=== PATIENT | male | born 1955 | race Caucasian/White ===

== ENCOUNTER → 2016-08-28 | Outpatient (CLI) | payer OTHER ==
[2016-04-27 19:28] VITALS: BP 140/81
--- NOTE | 2016-08-28 11:17 | RAD ---
HISTORY: COPD, wheezing, dyspnea Study: Two view chest Comparison: Prior chest CT report from 05/30/2015 Findings: There is dense consolidation in the right upper lobe. The lungs are clear without consolidation, eff usion or pneumothorax. The cardiac and mediastinal contours are within normal limits. The soft tiss ues are unremarkable. IMPRESSION: 1. Dense right upper lobe consolidation that may represent pneumonia. Reported By:
== END | disposition home or self-care (01) ==
LOC: RAD 09:45
PROVIDERS: ATTEND Nurse Practitioner Family
DX: J44.9 Chronic obstructive pulmonary disease, unspecified (principal); R06.09 Other forms of dyspnea; R06.2 Wheezing
CPT/HCPCS: 71020

== ENCOUNTER 2019-10-20 09:57 | Observation (INO) ==
[2019-10-20 10:29] LABS: BASOPHILS # (AUTO) 0.1 X10^3/uL (0.0-0.1); BASOPHILS % (AUTO) 1.2 % (0.2-1.0); EOSINOPHILS # (AUTO) 0.3 x10^3/uL (0.0-0.2); EOSINOPHILS % (AUTO) 2.7 % (0.9-2.9); HEMATOCRIT 35.4 % (42.0-54.0); HEMOGLOBIN 11.6 g/dL (13.5-18.0); LYMPHOCYTES # (AUTO) 1.2 X10^3/uL (1.3-2.9); LYMPHOCYTES % (AUTO) 11.5 % (21.0-51.0); MEAN CORPUSCULAR HEMOGLOBIN 23.9 pg (27.0-34.0); MEAN CORPUSCULAR HGB CONC 32.7 g/dL (33.0-35.0); MEAN PLATELET VOLUME 7.3 fL (7.4-11.0); MONOCYTES # (AUTO) 1.1 x10^3/uL (0.3-0.8); MONOCYTES % (AUTO) 10.3 % (0.0-13.0); NEUTROPHILS # (AUTO) 7.9 x10^3/uL (2.2-4.8); NEUTROPHILS % (AUTO) 74.3 % (42.0-75.0); PLATELET COUNT 599 X10^3/uL (150.0-450.0); RED BLOOD COUNT 4.85 X10^6/uL (4.7-6.0); RED CELL DISTRIBUTION WIDTH 16.9 % (11.6-16.5); WHITE BLOOD COUNT 10.6 X10^3/uL (3.6-10.0)
[2019-10-20 10:42] LABS: BLOOD UREA NITROGEN 7 mg/dL (7-18); CALCIUM 8.6 mg/dL (8.5-10.1); CARBON DIOXIDE 25.2 mmol/L (21-32); CHLORIDE 100 mmol/L (98-107); COR NA(FOR HYPERGLY) 135 mmol/L (136-145); CREATININE 1.04 mg/dL (0.70-1.30); SODIUM 134 mmol/L (136-145); TROPONIN I < 0.02 ng/mL (0-1.5); eGFR NON BLACK RACES > 60 (>60)
[2019-10-20 10:44] LABS: HYPOCHROMASIA 1+; PLATELET MORPHOLOGY COMMENT NORMAL (NORMAL)
[2019-10-20 10:47] LABS: ALANINE AMINOTRANSFERASE 32 Units/L (12-78); ALBUMIN 2.3 g/dL (3.4-5.0); ALKALINE PHOSPHATASE 143 Units/L (46-116); ASPARTATE AMINO TRANSFERASE 34 Units/L (15-37); CKMB % 8.3 % (<4); CREATINE KINASE 12 Units/L (39-308); CREATINE KINASE MB < 1.0 ng/mL (0-4.0); TOTAL PROTEIN 7.6 g/dL (6.4-8.2)
[2019-10-20] MEDS ORDERED: NS 1000 ML 1,000 ML IV ONE ×2 (10:50→13:03)
[2019-10-20] MEDS ORDERED: NS 1000 ML 1,000 ML ONE ×2 (10:51→13:04)
--- NOTE | 2019-10-20 11:21 | RAD ---
HISTORYChronic cough, weaknessSTUDYCHEST, 1 VIEWCOMPARISONCT chest 05/21/2018FINDINGSThe heart is within normal limits in size. No congestive heart failure is noted. The lungs are mildly hyperinflated. The lower lung ahn are clear. Cavitary infiltrate with associated pleural thickening is present in the right upper lobe slightly more prominent than was noted on the CT chest examination of 05/21/2018. However due on this examination is extensive infiltrates in the left upper lobe likely with some cavitation in some adjacent pleural thickening. These findings may represent an infectious process such as TB or fungal disease, less likely routine bacterial pneumonia, however, underlying neoplasm certainly cannot be excluded. Active TB must be excluded. Bronchoscopy may be indicated.IMPRESSIONInterval development since the prior examination of dense left upper lobe infiltrate likely with some cavitation. Some differential diagnostic possibilities given above. Active TB must be excluded. Underlying neoplasm certainly cannot be excluded as yetIncreasing prominence of the previously described cavitary infiltrates in the right upper lobe. Active TB must be excluded.Electronically signed by: DEDRICK LIN (Oct 20, 2019 11:19:13)
--- NOTE | 2019-10-20 11:33 | DR.GENAD ---
HPI Time Seen Time Seen by Provider: 10/20/19 10:11 PCP Primary Care Physician: FERN HPI Comment HPI Comment: Patient with 2 weeks of increasing weakness. Fresh blood per stool yesterday and today 10 episodes total. No nausea, vomiting or abdominal pain, no dysuria, no SHOB or cough, no chest pain, no syncope. PMH of "MAC Pneumonia" treated with "Multiple abx", denies ever having had an HIV test or being at risk for HIV, denies any history of cancer or chemotherapy. 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 Complaint/Symptoms Chief Complaint:: PT. C/O BRIGHT RED BLOOD IN STOOL. PT. STATES IT BEGAN LAST NIGHT AND HAS WORSENED THIS MORNING. PT. HAS HAD ABOUT 10 LOOSE STOOLS, MOSTLY BLOOD. PT. ALSO C/O WEAKNESS, ABDOMINAL PAIN AND DIZZINESS. COVID-19 Coronavirus risk:travel/contact w/high risk person: No Has patient experienced Coronavirus symptoms: No Source History Provided: Patient Mode of Arrival Mode of Arrival: Ambulatory Timing Onset of Chief Complaint: 10/20/19 PMH PMH Past Medical History: Yes Past Medical History: COPD, Depression and GERD Past Surgical History: Yes Surgical History: Appendectomy and Ortho Surgery Family History History of Family Medical Conditions: Yes Family Medical History: Diabetes Mellitus, [place] and Hypertension Social History Does patient currently use any type of tobacco product: Yes Have you used tobacco products in the last 12 months: Yes Type of Tobacco Use: Cigars Does any household member use tobacco: No Alcohol Use: None Do you use any recreational Drugs:: No Lives With: Spouse Lives Where: Home Travel Risk Coronavirus risk:travel/contact w/high risk person: No Has patient experienced Coronavirus symptoms: No Infectious screening In the last 2 months have you had wt loss of >10#?: NO Have you had fever, night sweats or hemotysis?: No Have you traveled outside the country in the last 6 months?: No Isolation: Standard ROS Review of Systems Constitutional: Weakness Eyes: No Symptoms Reported ENTM: No Symptoms Reported Respiratoy: No Symptoms Reported Cardiovascular: No Symptoms Reported Gastrointestinal/Abdominal: See HPI Genitourinary: No Symptoms Reported Neurological: No Symptoms Reported Musculoskeletal: No Symptoms Reported Integumentary: No Symptoms Reported Hematologic/Lymphatic: No Symptoms Reported Endocrine: No Symptoms Reported Psychiatric: No Symptoms Reported All Other Systems: Reviewed and Negative PE Vital Signs Vitals: Temperature 97.6 F Pulse Rate 84 Respiratory Rate 22 Blood Pressure [Right Arm] 117/60 Blood Pressure 84/52 O2 Sat by Pulse Oximetry 96 General Limitations: No Limitations General Appearance: Alert and In No Apparent Distress Head Head Exam: Normal Inspection Eyes Eye exam: Normal Appearance and Other ([place] palpebral conjuctivae) ENT ENT Exam: Normal Exam External Ear Exam: Normal External Inspection TM/Canal Exam: Bilateral: Normal Nose Exam: Normal Nose Exam Mouth Exam: Normal Inspection Throat Exam: Normal Inspection Neck Neck Exam: Normal Inspection Chest Chest Inspection: Normal Inspection Respiratory Respiratory Exam: Normal Lung Sounds Bilat Respiratory Exam: Bilateral: Clear to Auscultation Cardiovascular Cardiovascular Exam: Regular Rate and Normal Rhythm Abdominal Exam Abdominal Exam: Normal Inspection, Soft and Tenderness (Some epigastric tenderness); negative Distention, Guarding, Rebound and Rigidity Abdominal Tenderness: Epigastrium and Mild Extremities Extremities Exam: Normal Inspection Back Back Exam: Normal Inspection Neurologic Neurological Exam: Alert and Oriented X3 Psychiatric Psychiatric Exam: Normal Affect and Normal Mood Skin Skin Exam: Warm, Dry, Intact and Normal Color COURSE Treatment Treatment: Chest x-ray consistent with pt stated medical hx. Concern that bleeding was precipitated by patient being on daily Plavix, ASA, and Celecoxib. Due to borderline normal MAPs, bolus 1L x 2 was given. Hgb of 10.6 is slightly lower than baseline at previous visits, however due to frequency of bloody stools and weakness symptom, as well as borderline SBP, admission is indicated for obs and urgent endoscopy. Discussed with Dr. Phoenix, who agrees and accepts this patient. ROR Labs Reviewed Laboratory Results Reviewed?: Yes Result Diagrams: 10/20/19 10:18 10/20/19 10:18 Laboratory: WBC 10.6 X10^3/uL (3.6-10.0) H 10/20/19 10:18 RBC 4.85 X10^6/uL (4.7-6.0) 10/20/19 10:18 Hgb 11.6 g/dL (13.5-18.0) L 10/20/19 10:18 Hct 35.4 % (42.0-54.0) L 10/20/19 10:18 MCV 73.0 fL (80.0-100.0) L 10/20/19 10:18 MCH 23.9 pg (27.0-34.0) L 10/20/19 10:18 MCHC 32.7 g/dL (33.0-35.0) L 10/20/19 10:18 RDW 16.9 % (11.6-16.5) H 10/20/19 10:18 Plt Count 599 X10^3/uL (150.0-450.0) H 10/20/19 10:18 Plt Count Comment Increased (ADEQUATE) 10/20/19 10:18 MPV 7.3 fL (7.4-11.0) L 10/20/19 10:18 Neut % (Auto) 74.3 % (42.0-75.0) 10/20/19 10:18 Lymph % (Auto) 11.5 % (21.0-51.0) L 10/20/19 10:18 [place] % (Auto) 10.3 % (0.0-13.0) 10/20/19 10:18 Eos % (Auto) 2.7 % (0.9-2.9) 10/20/19 10:18 Baso % (Auto) 1.2 % (0.2-1.0) H 10/20/19 10:18 Neut # (Auto) 7.9 x10^3/uL (2.2-4.8) H 10/20/19 10:18 Lymph # (Auto) 1.2 X10^3/uL (1.3-2.9) L 10/20/19 10:18 [place] # (Auto) 1.1 x10^3/uL (0.3-0.8) H 10/20/19 10:18 Eos # (Auto) 0.3 x10^3/uL (0.0-0.2) H 10/20/19 10:18 Baso # (Auto) 0.1 X10^3/uL (0.0-0.1) 10/20/19 10:18 Absolute Nucleated RBC 0.0 /100WBC 10/20/19 10:18 Plt Morphology Comment Normal (NORMAL) 10/20/19 10:18 RBC Morphology Abnormal (NORMAL) 10/20/19 10:18 Hypochromasia 1+ A 10/20/19 10:18 Sodium 134 mmol/L (136-145) L 10/20/19 10:18 Corrected Sodium 135 mmol/L (136-145) L 10/20/19 10:18 Potassium 3.8 mmol/L (3.5-5.1) 10/20/19 10:18 Chloride 100 mmol/L (98-107) 10/20/19 10:18 Carbon Dioxide 25.2 mmol/L (21-32) 10/20/19 10:18 BUN 7 mg/dL (7-18) 10/20/19 10:18 Creatinine 1.04 mg/dL (0.70-1.30) 10/20/19 10:18 Est GFR (MDRD) Af Amer > 60 (>60) 10/20/19 10:18 Est GFR (MDRD) Non-Af > 60 (>60) 10/20/19 10:18 Glucose 143 mg/dL (65-99) H 10/20/19 10:18 Hemoglobin A1c 6.3 % 10/20/19 10:18 Calcium 8.6 mg/dL (8.5-10.1) 10/20/19 10:18 Corrected Calcium 10.0 mg/dL (8.5-10.1) 10/20/19 10:18 Total Bilirubin 0.30 mg/dL (0.2-1.0) 10/20/19 10:18 AST 34 Units/L (15-37) 10/20/19 10:18 ALT 32 Units/L (12-78) 10/20/19 10:18 Alkaline Phosphatase 143 Units/L (46-116) H 10/20/19 10:18 Creatine Kinase 12 Units/L (39-308) L 10/20/19 10:18 CK-MB (CK-2) < 1.0 ng/mL (0-4.0) 10/20/19 10:18 CK/CKMB % Calc 8.3 % (<4) 10/20/19 10:18 Troponin I < 0.02 ng/mL (0-1.5) 10/20/19 10:18 Total Protein 7.6 g/dL (6.4-8.2) 10/20/19 10:18 Albumin 2.3 g/dL (3.4-5.0) L 10/20/19 10:18 Globulin 5.3 g/dL (2.5-4.5) H 10/20/19 10:18 Albumin/Globulin Ratio 0.4 Ratio (1.1-2.1) L 10/20/19 10:18 TSH 3rd Generation 2.762 uIU/mL (0.358-3.74) 10/20/19 10:18 EKG Rate: 70 Jud: Normal Rhythm: NSR Block: None Hypertrophy: None ST: Normal Opioid Opioid Risk Tool Age ([place] if 16-45): No History of Preadolescent Sexual Abuse: No Total: 0 Total Score Risk Category: Low Risk Copyright: Randy MCGOVERN predicting aberrant behaviors Diagnosis Discharge Problem: Bleeding per rectum, Weakness Instructions Forms: Excuse From Work Precautions for COVID19 Patient Portal Social Distancing
[2019-10-20 11:58] LABS: HEMOGLOBIN A1C 6.3 %
[2019-10-20 12:08] LABS: TSH (3RD GENERATION) 2.762 uIU/mL (0.358-3.74)
[2019-10-20] MEDS ORDERED: PROTONIX INJ 40 MG VIAL IVP ONE (13:07)
[2019-10-20] MEDS ORDERED: PROTONIX INJ 40 MG VIAL ONE (13:17)
--- NOTE | 2019-10-20 14:04 | DR.H&P ---
H&P History & Physical for Day of: H&P Date: 10/20/19 Chief Complaint Chief Complaint: Blood in stool, Dizziness Allergies Allergies Allergy/AdvReac Type Severity Reaction Status Date / Time banana Allergy Verified 10/20/19 10:05 Barbiturates Allergy Verified 10/20/19 10:05 Penicillins Allergy Verified 10/20/19 10:05 streptomycin Allergy Verified 10/20/19 10:05 History of Present Illness History of Present Illness: Pt is a 64 yo m pmhx COPD, MDD, presenting after having multiple bloody bowel movements for the past day. He reports associated sx of dizziness, abdominal pain, and weakness. Denies nausea, vomiting.. Labs/imaging: Wbc 10.6, Hgb 11.6, Plt 599, Na 134, K 3.8, Cl 100, HCO3 25, BUN 7, Cr 1.04, Gluc 143, A1c 6.3, AST 34, ALT 32, ALP 143, CXR: does comment on concerns of TB, neoplasm, and cavitary lesion. However, per pt this is not new and has hx of MAC pneumonia that was treated at [facility], and he just saw his card clothier yesterday. Will keep pt NPO, pt was hypotensive in ED, will give IVF bolus, continue IVF, IV protonix BID, serial Hgb checks q8h, order heme occult, consult general surgery for further evaluation. Past Medical History Past Medical History: COPD, Depression and GERD Past Surgical History Surgical History: Appendectomy and Ortho Surgery Family History Family Medical History: Diabetes Mellitus, [place] and Hypertension Social History Does patient currently use any type of tobacco product: Yes Have you used tobacco products in the last 12 months: Yes Type of Tobacco Use: Cigars Does any household member use tobacco: No Alcohol Use: None Medications Home Medications: banana Allergy (Verified 10/20/19 10:05) Barbiturates Allergy (Verified 10/20/19 10:05) Penicillins Allergy (Verified 10/20/19 10:05) streptomycin Allergy (Verified 10/20/19 10:05) CONTINUE taking the following medications celecoxib 200 mg PO BID 10/20/19 [History] cyproheptadine 4 mg PO HS 10/20/19 [History] esomeprazole magnesium 40 mg PO QAM 10/20/19 [History] ferrous sulfate 325 mg PO DAILY 10/20/19 [History] hydrocodone-acetaminophen 1 tab PO Q6HR PRN 10/20/19 [History] metoclopramide HCl 10 mg PO QID 10/20/19 [History] Labs Result Diagrams: 10/20/19 10:18 10/20/19 10:18 Labs: Laboratory WBC 10.6 X10^3/uL (3.6-10.0) H 10/20/19 10:18 RBC 4.85 X10^6/uL (4.7-6.0) 10/20/19 10:18 Hgb 11.6 g/dL (13.5-18.0) L 10/20/19 10:18 Hct 35.4 % (42.0-54.0) L 10/20/19 10:18 MCV 73.0 fL (80.0-100.0) L 10/20/19 10:18 MCH 23.9 pg (27.0-34.0) L 10/20/19 10:18 MCHC 32.7 g/dL (33.0-35.0) L 10/20/19 10:18 RDW 16.9 % (11.6-16.5) H 10/20/19 10:18 Plt Count 599 X10^3/uL (150.0-450.0) H 10/20/19 10:18 Plt Count Comment Increased (ADEQUATE) 10/20/19 10:18 MPV 7.3 fL (7.4-11.0) L 10/20/19 10:18 Neut % (Auto) 74.3 % (42.0-75.0) 10/20/19 10:18 Lymph % (Auto) 11.5 % (21.0-51.0) L 10/20/19 10:18 [place] % (Auto) 10.3 % (0.0-13.0) 10/20/19 10:18 Eos % (Auto) 2.7 % (0.9-2.9) 10/20/19 10:18 Baso % (Auto) 1.2 % (0.2-1.0) H 10/20/19 10:18 Neut # (Auto) 7.9 x10^3/uL (2.2-4.8) H 10/20/19 10:18 Lymph # (Auto) 1.2 X10^3/uL (1.3-2.9) L 10/20/19 10:18 [place] # (Auto) 1.1 x10^3/uL (0.3-0.8) H 10/20/19 10:18 Eos # (Auto) 0.3 x10^3/uL (0.0-0.2) H 10/20/19 10:18 Baso # (Auto) 0.1 X10^3/uL (0.0-0.1) 10/20/19 10:18 Absolute Nucleated RBC 0.0 /100WBC 10/20/19 10:18 Plt Morphology Comment Normal (NORMAL) 10/20/19 10:18 RBC Morphology Abnormal (NORMAL) 10/20/19 10:18 Hypochromasia 1+ A 10/20/19 10:18 Sodium 134 mmol/L (136-145) L 10/20/19 10:18 Corrected Sodium 135 mmol/L (136-145) L 10/20/19 10:18 Potassium 3.8 mmol/L (3.5-5.1) 10/20/19 10:18 Chloride 100 mmol/L (98-107) 10/20/19 10:18 Carbon Dioxide 25.2 mmol/L (21-32) 10/20/19 10:18 BUN 7 mg/dL (7-18) 10/20/19 10:18 Creatinine 1.04 mg/dL (0.70-1.30) 10/20/19 10:18 Est GFR (MDRD) Af Amer > 60 (>60) 10/20/19 10:18 Est GFR (MDRD) Non-Af > 60 (>60) 10/20/19 10:18 Glucose 143 mg/dL (65-99) H 10/20/19 10:18 Hemoglobin A1c 6.3 % 10/20/19 10:18 Calcium 8.6 mg/dL (8.5-10.1) 10/20/19 10:18 Corrected Calcium 10.0 mg/dL (8.5-10.1) 10/20/19 10:18 Total Bilirubin 0.30 mg/dL (0.2-1.0) 10/20/19 10:18 AST 34 Units/L (15-37) 10/20/19 10:18 ALT 32 Units/L (12-78) 10/20/19 10:18 Alkaline Phosphatase 143 Units/L (46-116) H 10/20/19 10:18 Creatine Kinase 12 Units/L (39-308) L 10/20/19 10:18 CK-MB (CK-2) < 1.0 ng/mL (0-4.0) 10/20/19 10:18 CK/CKMB % Calc 8.3 % (<4) 10/20/19 10:18 Troponin I < 0.02 ng/mL (0-1.5) 10/20/19 10:18 Total Protein 7.6 g/dL (6.4-8.2) 10/20/19 10:18 Albumin 2.3 g/dL (3.4-5.0) L 10/20/19 10:18 Globulin 5.3 g/dL (2.5-4.5) H 10/20/19 10:18 Albumin/Globulin Ratio 0.4 Ratio (1.1-2.1) L 10/20/19 10:18 TSH 3rd Generation 2.762 uIU/mL (0.358-3.74) 10/20/19 10:18 Review of Systems Constitutional: Weakness; denies Fever and Chills Eyes: No Symptoms Reported ENT: No Symptoms Reported Respiratory: No Symptoms Reported Cardiovascular: No Symptoms Reported Gastrointestinal: Diarrhea and Melena; denies Nausea, Vomiting, Abdominal Pain and Constipation Genitourinary: No Symptoms Reported Musculoskeletal: No Symptoms Reported Skin: No Symptoms Reported Neurological: No Symptoms Reported Physical Exam Vital Signs: Temperature 97.6 F Pulse Rate 67 Respiratory Rate 22 Blood Pressure [Right Arm] 117/60 Blood Pressure 84/52 O2 Sat by Pulse Oximetry 98 Oriented: Normal Eyes: Normal Ear: Normal Nose: Normal Respiratory: Clear Throughout Cardiovascular: Normal : Normal Auscultation: Bowel Sounds: Normal Palpation: Normal Tenderness: Diffuse and Moderate Skin: Normal Musculoskeletal: Normal Psychiatric: Normal Mood Description: Calm Speech Pattern: Clear Assessment/Plan (1) GI bleed: Status: Acute Plan: NPO, IVF, IV protonix, Serial Hgb consult general surgery for evaluation (2) Hypotension: Status: Acute (3) Dizziness: Status: Acute (4) COPD (chronic obstructive pulmonary disease): Status: Acute Review H&P Reviewed: Yes Patient was examined?: Yes
[2019-10-20] MEDS ORDERED: PROVENTIL NEB TX 0.083% 2.5MG/ 3ML IN PRN (15:25)
[2019-10-20] MEDS ORDERED: NORCO 7.5/325 MG TAB PO PRN (15:25)
[2019-10-20] MEDS ORDERED: FLEXERIL TAB 10 MG PO PRN (15:25)
[2019-10-20 15:59] VITALS: BMI 22.8
[2019-10-20 16:09] LABS: BASOPHILS # (AUTO) 0.1 X10^3/uL (0.0-0.1); BASOPHILS % (AUTO) 0.7 % (0.2-1.0); EOSINOPHILS # (AUTO) 0.2 x10^3/uL (0.0-0.2); EOSINOPHILS % (AUTO) 2.3 % (0.9-2.9); HEMATOCRIT 27.9 % (42.0-54.0); HEMOGLOBIN 9.3 g/dL (13.5-18.0); LYMPHOCYTES # (AUTO) 1.2 X10^3/uL (1.3-2.9); LYMPHOCYTES % (AUTO) 14.8 % (21.0-51.0); MEAN CORPUSCULAR HGB CONC 33.3 g/dL (33.0-35.0); MEAN CORPUSCULAR VOLUME 72.1 fL (80.0-100.0); MEAN PLATELET VOLUME 6.9 fL (7.4-11.0); MONOCYTES # (AUTO) 0.9 x10^3/uL (0.3-0.8); MONOCYTES % (AUTO) 11.2 % (0.0-13.0); NEUTROPHILS # (AUTO) 5.9 x10^3/uL (2.2-4.8); PLATELET COUNT 476 X10^3/uL (150.0-450.0); RED BLOOD COUNT 3.88 X10^6/uL (4.7-6.0); WHITE BLOOD COUNT 8.3 X10^3/uL (3.6-10.0)
[2019-10-20 16:24] LABS: PLATELET MORPHOLOGY COMMENT NORMAL (NORMAL)
[2019-10-20 16:25] LABS: ALANINE AMINOTRANSFERASE 23 Units/L (12-78); ALBUMIN 1.7 g/dL (3.4-5.0); ALKALINE PHOSPHATASE 113 Units/L (46-116); ASPARTATE AMINO TRANSFERASE 27 Units/L (15-37); BLOOD UREA NITROGEN 6 mg/dL (7-18); CALCIUM 7.9 mg/dL (8.5-10.1); CARBON DIOXIDE 25.6 mmol/L (21-32); CHLORIDE 104 mmol/L (98-107); COR CA(FOR HYPOALB) 9.7 mg/dL (8.5-10.1); CREATININE 0.81 mg/dL (0.70-1.30); SODIUM 136 mmol/L (136-145); TOTAL PROTEIN 5.9 g/dL (6.4-8.2); eGFR NON BLACK RACES > 60 (>60)
[2019-10-20 16:26] LABS: ANISOCYTOSIS 1+
[2019-10-20 18:19] LABS: BILIRUBIN,URINE NEGATIVE (NEGATIVE); BLOOD/HEMOGLOBIN,URINE NEGATIVE (NEGATIVE); GLUCOSE, URINE NEGATIVE (NEGATIVE); KETONES,URINE NEGATIVE (NEGATIVE); LEUKOCYTE ESTERASE ,URINE NEGATIVE (NEGATIVE); NITRITES,URINE NEGATIVE (NEGATIVE); PH,URINE 6.5 (5.0 - 8.0); PROTEIN,URINE NEGATIVE (NEGATIVE); UROBILINOGEN,URINE NORMAL (NORMAL)
[2019-10-20 18:20] LABS: APPEARANCE,URINE CLEAR (CLEAR); COLOR,URINE YELLOW (YELLOW)
[2019-10-20] MEDS: NS 1000 ML 1,000 ML IV SCH (19:38)
[2019-10-20] MEDS ORDERED: NULYTELY or GO-LYTELY PO SCH ×2 (20:00)
[2019-10-20] MEDS ORDERED: LIPITOR TAB 20 MG PO SCH (21:00)
[2019-10-20] MEDS: PROVENTIL NEB TX 0.083% 2.5MG/ 3ML NEB PRN (21:13)
[2019-10-20 23:54] LABS: HEMATOCRIT 28.7 % (42.0-54.0); HEMOGLOBIN 9.3 g/dL (13.5-18.0)
[2019-10-21 06:19] LABS: PREALBUMIN 9.1 mg/dL (18-35.7)
[2019-10-21 06:39] LABS: ALANINE AMINOTRANSFERASE 22 Units/L (12-78); ALBUMIN 1.8 g/dL (3.4-5.0); ALKALINE PHOSPHATASE 108 Units/L (46-116); ASPARTATE AMINO TRANSFERASE 24 Units/L (15-37); BLOOD UREA NITROGEN 7 mg/dL (7-18); CALCIUM 8.1 mg/dL (8.5-10.1); CHLORIDE 103 mmol/L (98-107); COR CA(FOR HYPOALB) 9.9 mg/dL (8.5-10.1); CREATININE 0.75 mg/dL (0.70-1.30); MAGNESIUM 1.7 mg/dL (1.7-2.9); SODIUM 135 mmol/L (136-145); TOTAL PROTEIN 5.9 g/dL (6.4-8.2); eGFR NON BLACK RACES > 60 (>60)
--- NOTE | 2019-10-21 08:27 | PCM.PROG ---
Progress Note Progress Note for Day of Date of Exam: 10/21/19 Subjective Subjective: Pt is a 64 yo m pmhx COPD, MDD, admitted for GI bleed. He received golytely yesterday and had multiple bowel movements overnight. He reports blood in stool. Labs/imaging: Wbc 8.3, Hgb 11.6>9.3, Plt 476, Na 135, K 3.9, Cl 103, BUN 7, Cr 0.75, Gluc 74, Stool occult positive. Pt is NPO, continue IVF, IV protonix BID, trend Hgb. Hgb did decrease but also a component of dilutional after receiving over 2L IVF yesterday. General surgery plan for colonoscopy today. Will continue to monitor and follow up results and labs/imaging in the morning. Past Medical Family Social History Past Med/Fam/Surg Hx: No changes since H&P Allergies: Allergies banana Allergy (Verified 10/20/19 10:05) Barbiturates Allergy (Verified 10/20/19 10:05) Penicillins Allergy (Verified 10/20/19 10:05) streptomycin Allergy (Verified 10/20/19 10:05) Review of Systems ROS: No change since H&P Vital Signs and I&O's Vital Signs: Temperature 97.9 F Pulse Rate [Left Brachial] 66 Pulse Rate 65 Respiratory Rate 18 Blood Pressure [Left Arm] 103/54 Blood Pressure [Right Arm] 104/60 Blood Pressure 84/52 O2 Sat by Pulse Oximetry 94 Intake and Output: Intake & Output 10/18/19 10/19/19 10/20/19 10/21/19 23:59 23:59 23:59 23:59 Intake Total 4400 / 4400 2100 / 2100 Output Total 300 / 300 250 / 250 Balance 4100 / 4100 1850 / 1850 Physical Exam Oriented: Normal Eyes: Normal Ear: Normal Nose: Normal Respiratory: Normal Cardiovascular: Normal : Normal Auscultation: Bowel Sounds: Normal Tenderness: Diffuse and Mild Skin: Normal Musculoskeletal: Normal Psychiatric: Normal Mood Description: Calm Speech Pattern: Clear and Appropriate Laboratory and Diagnostics Result Diagrams: 10/20/19 23:40 10/21/19 05:25 Labs: Laboratory WBC 8.3 X10^3/uL (3.6-10.0) 10/20/19 15:53 RBC 3.88 X10^6/uL (4.7-6.0) L 10/20/19 15:53 Hgb 9.3 g/dL (13.5-18.0) L 10/20/19 23:40 Hct 28.7 % (42.0-54.0) L 10/20/19 23:40 MCV 72.1 fL (80.0-100.0) L 10/20/19 15:53 MCH 24.0 pg (27.0-34.0) L 10/20/19 15:53 MCHC 33.3 g/dL (33.0-35.0) 10/20/19 15:53 RDW 17.0 % (11.6-16.5) H 10/20/19 15:53 Plt Count 476 X10^3/uL (150.0-450.0) H 10/20/19 15:53 Plt Count Comment Adequate (ADEQUATE) 10/20/19 15:53 MPV 6.9 fL (7.4-11.0) L 10/20/19 15:53 Neut % (Auto) 71.0 % (42.0-75.0) 10/20/19 15:53 Lymph % (Auto) 14.8 % (21.0-51.0) L 10/20/19 15:53 [place] % (Auto) 11.2 % (0.0-13.0) 10/20/19 15:53 Eos % (Auto) 2.3 % (0.9-2.9) 10/20/19 15:53 Baso % (Auto) 0.7 % (0.2-1.0) 10/20/19 15:53 Neut # (Auto) 5.9 x10^3/uL (2.2-4.8) H 10/20/19 15:53 Lymph # (Auto) 1.2 X10^3/uL (1.3-2.9) L 10/20/19 15:53 [place] # (Auto) 0.9 x10^3/uL (0.3-0.8) H 10/20/19 15:53 Eos # (Auto) 0.2 x10^3/uL (0.0-0.2) 10/20/19 15:53 Baso # (Auto) 0.1 X10^3/uL (0.0-0.1) 10/20/19 15:53 Absolute Nucleated RBC 0.0 /100WBC 10/20/19 15:53 Plt Morphology Comment Normal (NORMAL) 10/20/19 15:53 RBC Morphology Abnormal (NORMAL) 10/20/19 15:53 Hypochromasia 1+ A 10/20/19 10:18 Anisocytosis 1+ A 10/20/19 15:53 PT 15.7 SECONDS (11.8-14.3) 10/21/19 05:25 INR Target Range - 10/21/19 05:25 INR 1.29 (0.8-1.3) 10/21/19 05:25 APTT 43.7 SECONDS (22.9-36.5) H 10/21/19 05:25 PTT Comment - 10/21/19 05:25 Sodium 135 mmol/L (136-145) L 10/21/19 05:25 Corrected Sodium TNP 10/21/19 05:25 Potassium 3.9 mmol/L (3.5-5.1) 10/21/19 05:25 Chloride 103 mmol/L (98-107) 10/21/19 05:25 Carbon Dioxide 23.0 mmol/L (21-32) 10/21/19 05:25 BUN 7 mg/dL (7-18) 10/21/19 05:25 Creatinine 0.75 mg/dL (0.70-1.30) 10/21/19 05:25 Est GFR (MDRD) Af Amer > 60 (>60) 10/21/19 05:25 Est GFR (MDRD) Non-Af > 60 (>60) 10/21/19 05:25 Glucose 74 mg/dL (65-99) 10/21/19 05:25 Hemoglobin A1c 6.3 % 10/20/19 10:18 Lactic Acid 1.6 mmol/L (0.4-2.0) 10/20/19 23:40 Calcium 8.1 mg/dL (8.5-10.1) L 10/21/19 05:25 Corrected Calcium 9.9 mg/dL (8.5-10.1) 10/21/19 05:25 Magnesium 1.7 mg/dL (1.7-2.9) 10/21/19 05:25 Total Bilirubin 0.30 mg/dL (0.2-1.0) 10/21/19 05:25 AST 24 Units/L (15-37) 10/21/19 05:25 ALT 22 Units/L (12-78) 10/21/19 05:25 Alkaline Phosphatase 108 Units/L (46-116) 10/21/19 05:25 Creatine Kinase 12 Units/L (39-308) L 10/20/19 10:18 CK-MB (CK-2) < 1.0 ng/mL (0-4.0) 10/20/19 10:18 CK/CKMB % Calc 8.3 % (<4) 10/20/19 10:18 Troponin I < 0.02 ng/mL (0-1.5) 10/20/19 10:18 Total Protein 5.9 g/dL (6.4-8.2) L 10/21/19 05:25 Albumin 1.8 g/dL (3.4-5.0) L 10/21/19 05:25 Globulin 4.1 g/dL (2.5-4.5) 10/21/19 05:25 Albumin/Globulin Ratio 0.4 Ratio (1.1-2.1) L 10/21/19 05:25 Prealbumin 9.1 mg/dL (18-35.7) L 10/21/19 05:25 TSH 3rd Generation 2.762 uIU/mL (0.358-3.74) 10/20/19 10:18 Specimen Type Clean catch urine 10/20/19 17:21 Urine Color Yellow (YELLOW) 10/20/19 17:21 Urine Appearance Clear (CLEAR) 10/20/19 17:21 Urine pH 6.5 (5.0 - 8.0) 10/20/19 17:21 Ur Specific [place] 1.010 (1.000-1.030) 10/20/19 17:21 Urine Protein Negative (NEGATIVE) 10/20/19 17:21 Urine Glucose (UA) Negative (NEGATIVE) 10/20/19 17:21 Urine Ketones Negative (NEGATIVE) 10/20/19 17:21 Urine Occult Blood Negative (NEGATIVE) 10/20/19 17:21 Urine Nitrite Negative (NEGATIVE) 10/20/19 17:21 Urine Bilirubin Negative (NEGATIVE) 10/20/19 17:21 Urine Urobilinogen Normal (NORMAL) 10/20/19 17:21 Ur Leukocyte Esterase Negative (NEGATIVE) 10/20/19 17:21 Stool Description 150 grs loose bloody 10/20/19 21:56 Stl Occult Blood (IFOB) Pos-microscopic (NEGATIVE) A 10/20/19 21:56 Stl C. diff Tox B Gene Negative (NEGATIVE) 10/20/19 22:03 Stl C. diff [id number] Negative (NEGATIVE) 10/20/19 22:03 Plan (1) GI bleed: Status: Acute Plan: NPO, IVF, IV protonix, Consult general surgery (2) Hypotension: Status: Acute (3) Dizziness: Status: Acute (4) COPD (chronic obstructive pulmonary disease): Status: Acute
[2019-10-21] MEDS ORDERED: HEMOCYTE-PLUS PO SCH (09:00)
[2019-10-21] MEDS ORDERED: TAB-A-VITE PO SCH (09:00)
[2019-10-21] MEDS: NS 1000 ML 1,000 ML IV SCH (09:29)
[2019-10-21] MEDS ORDERED: DIPRIVAN VIAL 20 ML ONE ×2 (10:32→10:50)
--- NOTE | 2019-10-21 11:42 | OR.IMMED ---
Immediate Post-Op Note - Immediate Post-Op Note Pre-Op Diagnosis: rectal bleeding Post-Op Diagnosis: mild gastritis . no bleeding . the colonoscopy revealed hemorrhoids drade 4 without bleding now . old blood in the Lt colon with diverticulosis . no bleeding from the Rt side . Procedure: EGD w Bx. colonoscopy to the cecum Surgeon/Transportation Services Representative: Herb Findings: as above. Estimated Blood Loss: none Drains: NONE Complications: no Condition: Stable (to advance diet . abdominal CT in am)
[2019-10-21] MEDS: PROVENTIL NEB TX 0.083% 2.5MG/ 3ML NEB PRN (18:54)
[2019-10-21] MEDS ORDERED: TYLENOL 325 MG TAB PO PRN (19:51)
[2019-10-22] MEDS: NS 1000 ML 1,000 ML IV SCH ×3 (01:13→16:00)
[2019-10-22 06:19] LABS: BASOPHILS # (AUTO) 0.1 X10^3/uL (0.0-0.1); BASOPHILS % (AUTO) 0.8 % (0.2-1.0); EOSINOPHILS # (AUTO) 0.2 x10^3/uL (0.0-0.2); EOSINOPHILS % (AUTO) 2.9 % (0.9-2.9); HEMATOCRIT 25.6 % (42.0-54.0); HEMOGLOBIN 8.5 g/dL (13.5-18.0); LYMPHOCYTES # (AUTO) 1.2 X10^3/uL (1.3-2.9); LYMPHOCYTES % (AUTO) 16.3 % (21.0-51.0); MEAN CORPUSCULAR HEMOGLOBIN 24.3 pg (27.0-34.0); MEAN CORPUSCULAR HGB CONC 33.3 g/dL (33.0-35.0); MEAN CORPUSCULAR VOLUME 72.9 fL (80.0-100.0); MEAN PLATELET VOLUME 7.6 fL (7.4-11.0); MONOCYTES # (AUTO) 1.1 x10^3/uL (0.3-0.8); MONOCYTES % (AUTO) 15.1 % (0.0-13.0); NEUTROPHILS # (AUTO) 4.6 x10^3/uL (2.2-4.8); NEUTROPHILS % (AUTO) 64.9 % (42.0-75.0); PLATELET COUNT 464 X10^3/uL (150.0-450.0); RED BLOOD COUNT 3.52 X10^6/uL (4.7-6.0); RED CELL DISTRIBUTION WIDTH 17.3 % (11.6-16.5); WHITE BLOOD COUNT 7.1 X10^3/uL (3.6-10.0)
[2019-10-22 06:25] LABS: BLOOD UREA NITROGEN 7 mg/dL (7-18); CALCIUM 8.1 mg/dL (8.5-10.1); CARBON DIOXIDE 24.5 mmol/L (21-32); CHLORIDE 104 mmol/L (98-107); CREATININE 0.71 mg/dL (0.70-1.30); SODIUM 137 mmol/L (136-145); eGFR NON BLACK RACES > 60 (>60)
[2019-10-22 06:43] LABS: HYPOCHROMASIA 1+; PLATELET MORPHOLOGY COMMENT NORMAL (NORMAL)
--- NOTE | 2019-10-22 10:25 | DR.PROGNOT ---
Hospital Progress Notes - Progress Note for Day of: Progress Note Date: 10/22/19 - Chief Complaint Chief Complaint: c/o RLQ pain , no nausea or vomiting . only mild rectal bleeding . Hg 8.5. CEA is pending . for abdomialCT today .. - Past Medical Family Social History Past Med/Fam/Surg Hx: No changes since H&P Allergies: Allergies banana Allergy (Verified 10/20/19 10:05) Barbiturates Allergy (Verified 10/20/19 10:05) Penicillins Allergy (Verified 10/20/19 10:05) streptomycin Allergy (Verified 10/20/19 10:05) - Review Of Systems ROS: No change since H&P - Vital Signs Vital Signs: Temperature 98.3 F Pulse Rate [Left Brachial] 60 Pulse Rate 78 Respiratory Rate 18 Blood Pressure [Left Arm] 91/55 Blood Pressure [Right Arm] 104/60 Blood Pressure 84/52 O2 Sat by Pulse Oximetry 97 - Physical Exam Oriented: Normal Eyes: Normal Ear: Normal Nose: Normal Respiratory: Normal Cardiovascular: Normal : Normal GI:Auscultation: Normal GI:Palpation: Normal GI: Tenderness: RLQ, Mild (moderate RLQ tenderness . BS+. no masses felt .) Skin: Normal Musculoskeletal: Normal Psychiatric: Normal Mood Description: Calm Speech Pattern: Clear, Appropriate - Laboratory and Diagnostics Result Diagrams: 10/22/19 05:25 10/22/19 05:25 Labs: Laboratory WBC 7.1 X10^3/uL (3.6-10.0) 10/22/19 05:25 RBC 3.52 X10^6/uL (4.7-6.0) L 10/22/19 05:25 Hgb 8.5 g/dL (13.5-18.0) L 10/22/19 05:25 Hct 25.6 % (42.0-54.0) L 10/22/19 05:25 MCV 72.9 fL (80.0-100.0) L 10/22/19 05:25 MCH 24.3 pg (27.0-34.0) L 10/22/19 05:25 MCHC 33.3 g/dL (33.0-35.0) 10/22/19 05:25 RDW 17.3 % (11.6-16.5) H 10/22/19 05:25 Plt Count 464 X10^3/uL (150.0-450.0) H 10/22/19 05:25 Plt Count Comment Adequate (ADEQUATE) 10/22/19 05:25 MPV 7.6 fL (7.4-11.0) 10/22/19 05:25 Neut % (Auto) 64.9 % (42.0-75.0) 10/22/19 05:25 Lymph % (Auto) 16.3 % (21.0-51.0) L 10/22/19 05:25 [place] % (Auto) 15.1 % (0.0-13.0) H 10/22/19 05:25 Eos % (Auto) 2.9 % (0.9-2.9) 10/22/19 05:25 Baso % (Auto) 0.8 % (0.2-1.0) 10/22/19 05:25 Neut # (Auto) 4.6 x10^3/uL (2.2-4.8) 10/22/19 05:25 Lymph # (Auto) 1.2 X10^3/uL (1.3-2.9) L 10/22/19 05:25 [place] # (Auto) 1.1 x10^3/uL (0.3-0.8) H 10/22/19 05:25 Eos # (Auto) 0.2 x10^3/uL (0.0-0.2) 10/22/19 05:25 Baso # (Auto) 0.1 X10^3/uL (0.0-0.1) 10/22/19 05:25 Absolute Nucleated RBC 0.0 /100WBC 10/22/19 05:25 Plt Morphology Comment Normal (NORMAL) 10/22/19 05:25 RBC Morphology Abnormal (NORMAL) 10/22/19 05:25 Hypochromasia 1+ A 10/22/19 05:25 Anisocytosis 1+ A 10/20/19 15:53 PT 15.7 SECONDS (11.8-14.3) 10/21/19 05:25 INR Target Range - 10/21/19 05:25 INR 1.29 (0.8-1.3) 10/21/19 05:25 APTT 43.7 SECONDS (22.9-36.5) H 10/21/19 05:25 PTT Comment - 10/21/19 05:25 Sodium 137 mmol/L (136-145) 10/22/19 05:25 Corrected Sodium TNP 10/22/19 05:25 Potassium 3.6 mmol/L (3.5-5.1) 10/22/19 05:25 Chloride 104 mmol/L (98-107) 10/22/19 05:25 Carbon Dioxide 24.5 mmol/L (21-32) 10/22/19 05:25 BUN 7 mg/dL (7-18) 10/22/19 05:25 Creatinine 0.71 mg/dL (0.70-1.30) 10/22/19 05:25 Est GFR (MDRD) Af Amer > 60 (>60) 10/22/19 05:25 Est GFR (MDRD) Non-Af > 60 (>60) 10/22/19 05:25 Glucose 96 mg/dL (65-99) 10/22/19 05:25 Hemoglobin A1c 6.3 % 10/20/19 10:18 Lactic Acid 1.6 mmol/L (0.4-2.0) 10/20/19 23:40 Calcium 8.1 mg/dL (8.5-10.1) L 10/22/19 05:25 Corrected Calcium 9.9 mg/dL (8.5-10.1) 10/21/19 05:25 Magnesium 1.7 mg/dL (1.7-2.9) 10/21/19 05:25 Total Bilirubin 0.30 mg/dL (0.2-1.0) 10/21/19 05:25 AST 24 Units/L (15-37) 10/21/19 05:25 ALT 22 Units/L (12-78) 10/21/19 05:25 Alkaline Phosphatase 108 Units/L (46-116) 10/21/19 05:25 Creatine Kinase 12 Units/L (39-308) L 10/20/19 10:18 CK-MB (CK-2) < 1.0 ng/mL (0-4.0) 10/20/19 10:18 CK/CKMB % Calc 8.3 % (<4) 10/20/19 10:18 Troponin I < 0.02 ng/mL (0-1.5) 10/20/19 10:18 Total Protein 5.9 g/dL (6.4-8.2) L 10/21/19 05:25 Albumin 1.8 g/dL (3.4-5.0) L 10/21/19 05:25 Globulin 4.1 g/dL (2.5-4.5) 10/21/19 05:25 Albumin/Globulin Ratio 0.4 Ratio (1.1-2.1) L 10/21/19 05:25 Prealbumin 9.1 mg/dL (18-35.7) L 10/21/19 05:25 TSH 3rd Generation 2.762 uIU/mL (0.358-3.74) 10/20/19 10:18 Specimen Type Clean catch urine 10/20/19 17:21 Urine Color Yellow (YELLOW) 10/20/19 17:21 Urine Appearance Clear (CLEAR) 10/20/19 17:21 Urine pH 6.5 (5.0 - 8.0) 10/20/19 17:21 Ur Specific [place] 1.010 (1.000-1.030) 10/20/19 17:21 Urine Protein Negative (NEGATIVE) 10/20/19 17:21 Urine Glucose (UA) Negative (NEGATIVE) 10/20/19 17:21 Urine Ketones Negative (NEGATIVE) 10/20/19 17:21 Urine Occult Blood Negative (NEGATIVE) 10/20/19 17:21 Urine Nitrite Negative (NEGATIVE) 10/20/19 17:21 Urine Bilirubin Negative (NEGATIVE) 10/20/19 17:21 Urine Urobilinogen Normal (NORMAL) 10/20/19 17:21 Ur Leukocyte Esterase Negative (NEGATIVE) 10/20/19 17:21 Stool Description 150 grs loose bloody 10/20/19 21:56 Stl Occult Blood (IFOB) Pos-microscopic (NEGATIVE) A 10/20/19 21:56 Stl C. diff Tox B Gene Negative (NEGATIVE) 10/20/19 22:03 Stl C. diff 027-NAP1-BI Negative (NEGATIVE) 10/20/19 22:03 Tissue Pathology To follow 10/21/19 10:57 - Assessment and Plan 1: bleeding diverticulosis . moderate anemia . hypoalbuminemia. RLQ pain . for abdominal /pelvic CT today . to follow as OP and repeat colonoscopy in the future with better bowel prep . - Problem Patient Problems: Patient Problems COPD (chronic obstructive pulmonary disease) (Acute) J44.9 Dizziness (Acute) R42 Hypotension (Acute) I95.9 GI bleed (Acute) K92.2 Bleeding per rectum (Acute) K62.5 Weakness (Acute ~10/20/19) R53.1
--- NOTE | 2019-10-22 10:29 | CT ---
HISTORYRectal bleedingSTUDYABDOMEN/PELVIS W/O CONTechnique: Axial noncontrast images with coronal and sagittal reformats. Dose reduction procedures were used with mA/kv adjusted for body size. This examination is limited due to the lack of intravenous contrast which could not be administered due to a history of contrast sensitivity given by the patient.COMPARISONNoneFINDINGSThe lung bases are free of acute infiltrates. Changes of centrilobular emphysema are present. The liver, spleen, adrenal glands, and pancreas are within normal limits only to the limitations of an unenhanced examination. No opaque stones are visible within the gallbladder. The kidneys are unobstructed and without stones. No ureteral calculi are identified. Calcific atherosclerotic change is present in a nondilated abdominal aorta. No intraperitoneal or retroperitoneal lymphadenopathy of significance is identified. There are no findings suggestive of enteritis, colitis, or diverticulitis. No definite colon or small bowel masses are identified. Examination of the pelvis demonstrated no evidence for pelvic masses, pelvic fluid, or pelvic lymphadenopathy. The prostate gland is mildly enlarged. No lytic or blastic skeletal lesions of significance are identified.IMPRESSIONNo definite acute intra-abdominal or intrapelvic abnormality to the limitations of an examination performed without intravenous contrast.Electronically signed by: DEDRICK LIN (Oct 22, 2019 10:28:26)
--- NOTE | 2019-10-22 10:32 | PCM.PROG ---
Progress Note Progress Note for Day of Date of Exam: 10/22/19 Subjective Subjective: Pt is a 64 yo m pmhx COPD, MDD, admitted for GI bleed. This morning patient states he is feeling weak. Yesterday he had EGD and colonoscopy, results mild gastritis, no bleeding. the colonoscopy revealed hemorrhoids grade 4 without bleeding now. Old blood in the Lt colon with diverticulosis. No bleeding from the Rt side. Labs/imaging Wbc 7.1, Hgb 9.3>8.5, Plt 464, Na 137, K 3.6, Cr 0.71, Gluc 96, Pt is NPO, continue IVF, IV protonix BID, trend Hgb. General surgery plan for CTAP today, will follow up recs. Continue to monitor and follow up labs/imaging in the morning. Past Medical Family Social History Past Med/Fam/Surg Hx: No changes since H&P Allergies: Allergies banana Allergy (Verified 10/20/19 10:05) Barbiturates Allergy (Verified 10/20/19 10:05) Penicillins Allergy (Verified 10/20/19 10:05) streptomycin Allergy (Verified 10/20/19 10:05) Review of Systems ROS: No change since H&P Vital Signs and I&O's Vital Signs: Temperature 98.3 F Pulse Rate [Left Brachial] 60 Pulse Rate 78 Respiratory Rate 18 Blood Pressure [Left Arm] 91/55 Blood Pressure [Right Arm] 104/60 Blood Pressure 84/52 O2 Sat by Pulse Oximetry 97 Intake and Output: Intake & Output 10/19/19 10/20/19 10/21/19 10/22/19 23:59 23:59 23:59 23:59 Intake Total 4400 / 4400 2940 / 2940 600 / 600 Output Total 300 / 300 1125 / 1125 625 / 625 Balance 4100 / 4100 1815 / 1815 -25 / -25 Physical Exam Oriented: Normal Eyes: Normal Ear: Normal Nose: Normal Respiratory: Normal Cardiovascular: Normal : Normal Auscultation: Bowel Sounds: Normal Tenderness: Diffuse and Mild Skin: Normal Musculoskeletal: Normal Psychiatric: Normal Mood Description: Calm Speech Pattern: Clear and Appropriate Laboratory and Diagnostics Result Diagrams: 10/22/19 05:25 10/22/19 05:25 Labs: Laboratory WBC 7.1 X10^3/uL (3.6-10.0) 10/22/19 05:25 RBC 3.52 X10^6/uL (4.7-6.0) L 10/22/19 05:25 Hgb 8.5 g/dL (13.5-18.0) L 10/22/19 05:25 Hct 25.6 % (42.0-54.0) L 10/22/19 05:25 MCV 72.9 fL (80.0-100.0) L 10/22/19 05:25 MCH 24.3 pg (27.0-34.0) L 10/22/19 05:25 MCHC 33.3 g/dL (33.0-35.0) 10/22/19 05:25 RDW 17.3 % (11.6-16.5) H 10/22/19 05:25 Plt Count 464 X10^3/uL (150.0-450.0) H 10/22/19 05:25 Plt Count Comment Adequate (ADEQUATE) 10/22/19 05:25 MPV 7.6 fL (7.4-11.0) 10/22/19 05:25 Neut % (Auto) 64.9 % (42.0-75.0) 10/22/19 05:25 Lymph % (Auto) 16.3 % (21.0-51.0) L 10/22/19 05:25 [place] % (Auto) 15.1 % (0.0-13.0) H 10/22/19 05:25 Eos % (Auto) 2.9 % (0.9-2.9) 10/22/19 05:25 Baso % (Auto) 0.8 % (0.2-1.0) 10/22/19 05:25 Neut # (Auto) 4.6 x10^3/uL (2.2-4.8) 10/22/19 05:25 Lymph # (Auto) 1.2 X10^3/uL (1.3-2.9) L 10/22/19 05:25 [place] # (Auto) 1.1 x10^3/uL (0.3-0.8) H 10/22/19 05:25 Eos # (Auto) 0.2 x10^3/uL (0.0-0.2) 10/22/19 05:25 Baso # (Auto) 0.1 X10^3/uL (0.0-0.1) 10/22/19 05:25 Absolute Nucleated RBC 0.0 /100WBC 10/22/19 05:25 Plt Morphology Comment Normal (NORMAL) 10/22/19 05:25 RBC Morphology Abnormal (NORMAL) 10/22/19 05:25 Hypochromasia 1+ A 10/22/19 05:25 Anisocytosis 1+ A 10/20/19 15:53 PT 15.7 SECONDS (11.8-14.3) 10/21/19 05:25 INR Target Range - 10/21/19 05:25 INR 1.29 (0.8-1.3) 10/21/19 05:25 APTT 43.7 SECONDS (22.9-36.5) H 10/21/19 05:25 PTT Comment - 10/21/19 05:25 Sodium 137 mmol/L (136-145) 10/22/19 05:25 Corrected Sodium TNP 10/22/19 05:25 Potassium 3.6 mmol/L (3.5-5.1) 10/22/19 05:25 Chloride 104 mmol/L (98-107) 10/22/19 05:25 Carbon Dioxide 24.5 mmol/L (21-32) 10/22/19 05:25 BUN 7 mg/dL (7-18) 10/22/19 05:25 Creatinine 0.71 mg/dL (0.70-1.30) 10/22/19 05:25 Est GFR (MDRD) Af Amer > 60 (>60) 10/22/19 05:25 Est GFR (MDRD) Non-Af > 60 (>60) 10/22/19 05:25 Glucose 96 mg/dL (65-99) 10/22/19 05:25 Hemoglobin A1c 6.3 % 10/20/19 10:18 Lactic Acid 1.6 mmol/L (0.4-2.0) 10/20/19 23:40 Calcium 8.1 mg/dL (8.5-10.1) L 10/22/19 05:25 Corrected Calcium 9.9 mg/dL (8.5-10.1) 10/21/19 05:25 Magnesium 1.7 mg/dL (1.7-2.9) 10/21/19 05:25 Total Bilirubin 0.30 mg/dL (0.2-1.0) 10/21/19 05:25 AST 24 Units/L (15-37) 10/21/19 05:25 ALT 22 Units/L (12-78) 10/21/19 05:25 Alkaline Phosphatase 108 Units/L (46-116) 10/21/19 05:25 Creatine Kinase 12 Units/L (39-308) L 10/20/19 10:18 CK-MB (CK-2) < 1.0 ng/mL (0-4.0) 10/20/19 10:18 CK/CKMB % Calc 8.3 % (<4) 10/20/19 10:18 Troponin I < 0.02 ng/mL (0-1.5) 10/20/19 10:18 Total Protein 5.9 g/dL (6.4-8.2) L 10/21/19 05:25 Albumin 1.8 g/dL (3.4-5.0) L 10/21/19 05:25 Globulin 4.1 g/dL (2.5-4.5) 10/21/19 05:25 Albumin/Globulin Ratio 0.4 Ratio (1.1-2.1) L 10/21/19 05:25 Prealbumin 9.1 mg/dL (18-35.7) L 10/21/19 05:25 TSH 3rd Generation 2.762 uIU/mL (0.358-3.74) 10/20/19 10:18 Specimen Type Clean catch urine 10/20/19 17:21 Urine Color Yellow (YELLOW) 10/20/19 17:21 Urine Appearance Clear (CLEAR) 10/20/19 17:21 Urine pH 6.5 (5.0 - 8.0) 10/20/19 17:21 Ur Specific [place] 1.010 (1.000-1.030) 10/20/19 17:21 Urine Protein Negative (NEGATIVE) 10/20/19 17:21 Urine Glucose (UA) Negative (NEGATIVE) 10/20/19 17:21 Urine Ketones Negative (NEGATIVE) 10/20/19 17:21 Urine Occult Blood Negative (NEGATIVE) 10/20/19 17:21 Urine Nitrite Negative (NEGATIVE) 10/20/19 17:21 Urine Bilirubin Negative (NEGATIVE) 10/20/19 17:21 Urine Urobilinogen Normal (NORMAL) 10/20/19 17:21 Ur Leukocyte Esterase Negative (NEGATIVE) 10/20/19 17:21 Stool Description 150 grs loose bloody 10/20/19 21:56 Stl Occult Blood (IFOB) Pos-microscopic (NEGATIVE) A 10/20/19 21:56 Stl C. diff Tox B Gene Negative (NEGATIVE) 10/20/19 22:03 Stl C. diff [id number]-NAP1-BI Negative (NEGATIVE) 10/20/19 22:03 Tissue Pathology To follow 10/21/19 10:57 Plan (1) GI bleed: Status: Acute Plan: NPO, IVF, IV protonix, Consult general surgery (2) Hypotension: Status: Acute (3) Dizziness: Status: Acute (4) COPD (chronic obstructive pulmonary disease): Status: Acute
[2019-10-23] MEDS: NS 1000 ML 1,000 ML IV SCH ×2 (03:45→03:46)
--- NOTE | 2019-10-23 07:53 | W.DIS.FURT ---
Summary of Discharge Discharge Summary of Date Date of Exam: 10/23/19 Admission Date Date of Admission: 10/20/19 Admission Diagnosis Hospital Course: Pt is a 64 yo m pmhx COPD, MDD, admitted for GI bleed. Pt was kept NPO, given IVF, IV protonix, and had hgb trended. General surgery-Dr Estevez was consulted and had EGD and colonoscopy, results mild gastritis, no bleeding. the colonoscopy revealed hemorrhoids grade 4 without bleeding now. Old blood in the Lt colon with diverticulosis. No bleeding from the Rt side. Pt's hgb remained stable at 8.8 and pt did not have any further bleeding episodes. CTAP was also performed that was negative for any acute findings. Pt in stable condition with instructions to hold aspirin and plavix for 5 more days before resuming, d/c celebrex, continue protonix. Discharged to follow up with pcp and Dr Estevez in 1-2 weeks. Vital Signs: Vital Signs (72 hours) 10/20/19 10:02 10/20/19 10:14 10/20/19 10:15 Temperature 97.6 F Pulse Rate 96 H 86 88 Pulse Rate [Left Brachial] Respiratory Rate 22 Blood Pressure 103/73 Blood Pressure [Left Arm] Blood Pressure [Right Arm] O2 Sat by Pulse Oximetry 98 98 98 10/20/19 10:30 10/20/19 10:45 10/20/19 11:00 Temperature Pulse Rate 80 72 85 Pulse Rate [Left Brachial] Respiratory Rate Blood Pressure 98/66 93/71 Blood Pressure [Left Arm] Blood Pressure [Right Arm] O2 Sat by Pulse Oximetry 98 97 97 10/20/19 11:15 10/20/19 11:30 10/20/19 11:45 Temperature Pulse Rate 67 74 76 Pulse Rate [Left Brachial] Respiratory Rate Blood Pressure 96/51 Blood Pressure [Left Arm] Blood Pressure [Right Arm] O2 Sat by Pulse Oximetry 96 96 98 10/20/19 12:00 10/20/19 12:15 10/20/19 12:30 Temperature Pulse Rate 69 68 70 Pulse Rate [Left Brachial] Respiratory Rate Blood Pressure 98/58 100/60 Blood Pressure [Left Arm] Blood Pressure [Right Arm] O2 Sat by Pulse Oximetry 97 97 95 10/20/19 12:45 10/20/19 13:00 10/20/19 13:15 Temperature Pulse Rate 71 84 76 Pulse Rate [Left Brachial] Respiratory Rate Blood Pressure 84/52 Blood Pressure [Left Arm] Blood Pressure [Right Arm] O2 Sat by Pulse Oximetry 95 96 94 L 10/20/19 13:30 10/20/19 13:45 10/20/19 14:01 Temperature Pulse Rate 73 67 Pulse Rate [Left Brachial] Respiratory Rate Blood Pressure Blood Pressure [Left Arm] Blood Pressure [Right Arm] 104/60 O2 Sat by Pulse Oximetry 97 98 10/20/19 14:34 10/20/19 16:00 10/20/19 20:00 Temperature 97.9 F 99.9 F H 98.4 F Pulse Rate Pulse Rate [Left Brachial] 84 57 L 68 Respiratory Rate 18 20 18 Blood Pressure Blood Pressure [Left Arm] 83/50 103/56 102/59 Blood Pressure [Right Arm] O2 Sat by Pulse Oximetry 96 98 96 10/20/19 21:13 10/21/19 00:00 10/21/19 03:58 Temperature 98.2 F 97.9 F Pulse Rate 65 Pulse Rate [Left Brachial] 69 66 Respiratory Rate 18 18 Blood Pressure Blood Pressure [Left Arm] 98/59 103/54 Blood Pressure [Right Arm] O2 Sat by Pulse Oximetry 96 97 94 L 10/21/19 08:00 10/21/19 11:40 10/21/19 11:55 Temperature 98.8 F 98.6 F 98.6 F Pulse Rate Pulse Rate [Left Brachial] 76 59 L 58 L Respiratory Rate 20 18 18 Blood Pressure Blood Pressure [Left Arm] 106/55 78/49 80/48 Blood Pressure [Right Arm] O2 Sat by Pulse Oximetry 95 97 97 10/21/19 12:10 10/21/19 12:25 10/21/19 12:40 Temperature 98.6 F 98.6 F 98.2 F Pulse Rate Pulse Rate [Left Brachial] 58 L 60 63 Respiratory Rate 18 18 18 Blood Pressure Blood Pressure [Left Arm] 79/45 93/50 99/55 Blood Pressure [Right Arm] O2 Sat by Pulse Oximetry 96 96 97 10/21/19 16:00 10/21/19 18:54 10/21/19 20:00 Temperature 99.9 F H 100.1 F H Pulse Rate 65 Pulse Rate [Left Brachial] 64 88 Respiratory Rate 18 16 Blood Pressure Blood Pressure [Left Arm] 82/50 81/46 Blood Pressure [Right Arm] O2 Sat by Pulse Oximetry 96 97 94 L 10/21/19 20:32 10/21/19 21:05 10/21/19 21:30 Temperature Pulse Rate 78 Pulse Rate [Left Brachial] Respiratory Rate 17 16 Blood Pressure Blood Pressure [Left Arm] Blood Pressure [Right Arm] O2 Sat by Pulse Oximetry 95 10/21/19 23:55 10/22/19 04:00 10/22/19 07:59 Temperature 99.7 F H 97.6 F 98.3 F Pulse Rate Pulse Rate [Left Brachial] 58 L 55 L 60 Respiratory Rate 22 24 18 Blood Pressure Blood Pressure [Left Arm] 96/53 81/47 91/55 Blood Pressure [Right Arm] O2 Sat by Pulse Oximetry 97 96 97 10/22/19 09:10 10/22/19 12:00 10/22/19 16:00 Temperature 98.8 F 98.2 F Pulse Rate 80 Pulse Rate [Left Brachial] 61 58 L Respiratory Rate 18 18 Blood Pressure Blood Pressure [Left Arm] 98/55 87/50 Blood Pressure [Right Arm] O2 Sat by Pulse Oximetry 95 97 96 10/22/19 20:00 10/22/19 20:05 10/23/19 00:00 Temperature 98.5 F 97.8 F Pulse Rate 66 Pulse Rate [Left Brachial] 57 L 60 Respiratory Rate 16 18 Blood Pressure Blood Pressure [Left Arm] 80/45 Blood Pressure [Right Arm] 87/51 O2 Sat by Pulse Oximetry 94 L 95 97 10/23/19 04:00 Temperature 98.8 F Pulse Rate Pulse Rate [Left Brachial] 65 Respiratory Rate 20 Blood Pressure Blood Pressure [Left Arm] Blood Pressure [Right Arm] 81/50 O2 Sat by Pulse Oximetry 95 Labs: Laboratory Last Values WBC 7.1 X10^3/uL (3.6-10.0) 10/22/19 05:25 RBC 3.52 X10^6/uL (4.7-6.0) L 10/22/19 05:25 Hgb 8.8 g/dL (13.5-18.0) L 10/22/19 16:07 Hct 25.6 % (42.0-54.0) L 10/22/19 05:25 MCV 72.9 fL (80.0-100.0) L 10/22/19 05:25 MCH 24.3 pg (27.0-34.0) L 10/22/19 05:25 MCHC 33.3 g/dL (33.0-35.0) 10/22/19 05:25 RDW 17.3 % (11.6-16.5) H 10/22/19 05:25 Plt Count 464 X10^3/uL (150.0-450.0) H 10/22/19 05:25 Plt Count Comment Adequate (ADEQUATE) 10/22/19 05:25 MPV 7.6 fL (7.4-11.0) 10/22/19 05:25 Neut % (Auto) 64.9 % (42.0-75.0) 10/22/19 05:25 Lymph % (Auto) 16.3 % (21.0-51.0) L 10/22/19 05:25 [place] % (Auto) 15.1 % (0.0-13.0) H 10/22/19 05:25 Eos % (Auto) 2.9 % (0.9-2.9) 10/22/19 05:25 Baso % (Auto) 0.8 % (0.2-1.0) 10/22/19 05:25 Neut # (Auto) 4.6 x10^3/uL (2.2-4.8) 10/22/19 05:25 Lymph # (Auto) 1.2 X10^3/uL (1.3-2.9) L 10/22/19 05:25 [place] # (Auto) 1.1 x10^3/uL (0.3-0.8) H 10/22/19 05:25 Eos # (Auto) 0.2 x10^3/uL (0.0-0.2) 10/22/19 05:25 Baso # (Auto) 0.1 X10^3/uL (0.0-0.1) 10/22/19 05:25 Absolute Nucleated RBC 0.0 /100WBC 10/22/19 05:25 Plt Morphology Comment Normal (NORMAL) 10/22/19 05:25 RBC Morphology Abnormal (NORMAL) 10/22/19 05:25 Hypochromasia 1+ A 10/22/19 05:25 Anisocytosis 1+ A 10/20/19 15:53 PT 15.7 SECONDS (11.8-14.3) 10/21/19 05:25 INR Target Range - 10/21/19 05:25 INR 1.29 (0.8-1.3) 10/21/19 05:25 APTT 43.7 SECONDS (22.9-36.5) H 10/21/19 05:25 PTT Comment - 10/21/19 05:25 Sodium 137 mmol/L (136-145) 10/22/19 05:25 Corrected Sodium TNP 10/22/19 05:25 Potassium 3.6 mmol/L (3.5-5.1) 10/22/19 05:25 Chloride 104 mmol/L (98-107) 10/22/19 05:25 Carbon Dioxide 24.5 mmol/L (21-32) 10/22/19 05:25 BUN 7 mg/dL (7-18) 10/22/19 05:25 Creatinine 0.71 mg/dL (0.70-1.30) 10/22/19 05:25 Est GFR (MDRD) Af Amer > 60 (>60) 10/22/19 05:25 Est GFR (MDRD) Non-Af > 60 (>60) 10/22/19 05:25 Glucose 96 mg/dL (65-99) 10/22/19 05:25 Hemoglobin A1c 6.3 % 10/20/19 10:18 Lactic Acid 1.6 mmol/L (0.4-2.0) 10/20/19 23:40 Calcium 8.1 mg/dL (8.5-10.1) L 10/22/19 05:25 Corrected Calcium 9.9 mg/dL (8.5-10.1) 10/21/19 05:25 Magnesium 1.7 mg/dL (1.7-2.9) 10/21/19 05:25 Total Bilirubin 0.30 mg/dL (0.2-1.0) 10/21/19 05:25 AST 24 Units/L (15-37) 10/21/19 05:25 ALT 22 Units/L (12-78) 10/21/19 05:25 Alkaline Phosphatase 108 Units/L (46-116) 10/21/19 05:25 Creatine Kinase 12 Units/L (39-308) L 10/20/19 10:18 CK-MB (CK-2) < 1.0 ng/mL (0-4.0) 10/20/19 10:18 CK/CKMB % Calc 8.3 % (<4) 10/20/19 10:18 Troponin I < 0.02 ng/mL (0-1.5) 10/20/19 10:18 Total Protein 5.9 g/dL (6.4-8.2) L 10/21/19 05:25 Albumin 1.8 g/dL (3.4-5.0) L 10/21/19 05:25 Globulin 4.1 g/dL (2.5-4.5) 10/21/19 05:25 Albumin/Globulin Ratio 0.4 Ratio (1.1-2.1) L 10/21/19 05:25 Prealbumin 9.1 mg/dL (18-35.7) L 10/21/19 05:25 TSH 3rd Generation 2.762 uIU/mL (0.358-3.74) 10/20/19 10:18 Specimen Type Clean catch urine 10/20/19 17:21 Urine Color Yellow (YELLOW) 10/20/19 17:21 Urine Appearance Clear (CLEAR) 10/20/19 17:21 Urine pH 6.5 (5.0 - 8.0) 10/20/19 17:21 Ur Specific [place] 1.010 (1.000-1.030) 10/20/19 17:21 Urine Protein Negative (NEGATIVE) 10/20/19 17:21 Urine Glucose (UA) Negative (NEGATIVE) 10/20/19 17:21 Urine Ketones Negative (NEGATIVE) 10/20/19 17:21 Urine Occult Blood Negative (NEGATIVE) 10/20/19 17:21 Urine Nitrite Negative (NEGATIVE) 10/20/19 17:21 Urine Bilirubin Negative (NEGATIVE) 10/20/19 17:21 Urine Urobilinogen Normal (NORMAL) 10/20/19 17:21 Ur Leukocyte Esterase Negative (NEGATIVE) 10/20/19 17:21 Stool Description 150 grs loose bloody 10/20/19 21:56 Stl Occult Blood (IFOB) Pos-microscopic (NEGATIVE) A 10/20/19 21:56 Stl C. diff Tox B Gene Negative (NEGATIVE) 10/20/19 22:03 Stl C. diff [id number]-[id number] Negative (NEGATIVE) 10/20/19 22:03 Tissue Pathology To follow 10/21/19 10:57 Reason For Visit: BLEEDING PER RECTUM WEAKNESS Discharge Date Discharge Date: 10/23/19 Discharge Diagnosis All Active Problems (Updated 10/20/19 @ 14:51 by Coleman Phoenix) COPD (chronic obstructive pulmonary disease) (Acute) Dizziness (Acute) Hypotension (Acute) GI bleed (Acute) Allergic drug rash (Acute) Skin abrasion (Acute) Weakness (Acute) Depression determined by examination (Acute) Grief reaction (Acute) Hemoptysis (Acute) Bleeding per rectum (Acute) Weakness (Acute ~10/20/19) Plan of Treatment: Continue with present treatment and follow up plan. Pt is to keep follow up appointment as instructed and take medications as ordered. Discharge Medications Discharge Medications: banana Allergy (Verified 10/20/19 10:05) Barbiturates Allergy (Verified 10/20/19 10:05) Penicillins Allergy (Verified 10/20/19 10:05) streptomycin Allergy (Verified 10/20/19 10:05) CONTINUE taking the following medications cyproheptadine 4 mg PO HS 10/20/19 [History] esomeprazole magnesium 40 mg PO QAM 10/20/19 [History] ferrous sulfate 325 mg PO DAILY 10/20/19 [History] hydrocodone-acetaminophen 1 tab PO Q6HR PRN 10/20/19 [History] metoclopramide HCl 10 mg PO QID 10/20/19 [History] Discharge Disposition Discharge Disposition: Home Discharge Condition: Stable
[2019-10-23 08:41] VITALS: BP 78/50
[2019-10-23] MEDS: PROVENTIL NEB TX 0.083% 2.5MG/ 3ML NEB PRN (09:35)
== END 2019-10-23 10:30 | disposition home or self-care (01) ==
LOC: ER 10:02 → INTOOBSV 13:48 → MED/SURG 13:48
PROVIDERS: ADMIT Family Medicine; ATTEND Family Medicine
DX: K44.9 Diaphragmatic hernia without obstruction or gangrene; K64.3 Fourth degree hemorrhoids; D64.89 Other specified anemias; R53.1 Weakness; R79.1 Abnormal coagulation profile; I95.89 Other hypotension; K57.31 Diverticulosis of large intestine without perforation or abscess with bleeding; J44.9 Chronic obstructive pulmonary disease, unspecified; R06.02 Shortness of breath; K29.60 Other gastritis without bleeding; K21.9 Gastro-esophageal reflux disease without esophagitis; R42 Dizziness and giddiness; R97.0 Elevated carcinoembryonic antigen [CEA]; R26.89 Other abnormalities of gait and mobility
CPT/HCPCS: 36415; 71010; 71045; 74176; 80048; 80053; 81003; 82270; 82378; 82550; 82553; 83036; 83605; 83735; 83898; 84134; 84443; 84484; 85014; 85018; 85025; 85610; 85730; 87493; 88342; 93005; 94640; 96360; 96361; 96365; 96367; 96374; 97166; 99284; A4216; A4222; C9113; G0378; J2704; J3490; J7030; J7613

== ENCOUNTER 2022-01-26 08:54 | Inpatient (IN) ==
--- NOTE | 2022-01-26 09:08 | DR.GENAD ---
HPI Time Seen Time Seen by Provider: 01/26/22 09:06 Complaint/Symptoms Chief Complaint Doctors Comments: 66 y/o male presents for evaluation. Recently treated by PCP for double pneumonia. Has a h/o chronic MAC infection. Having increasing weakness past few days. BP has been low. No report of vomiting, diarrhea, current fever or chills. Having pain of his neck, pain. Has been having decreased PO intake. Nurses notes reviewed Nurses Notes Review: Yes Source History Provided: Patient and Significant Other PMH PMH Past Medical History: COPD, Depression and GERD Past Medical History Comment: Chronic MAC infection Past Surgical History: Yes Surgical History: Appendectomy and Ortho Surgery Family History Family Medical History: Diabetes Mellitus, HI and Hypertension Social History Does patient currently use any type of tobacco product: No Alcohol Use: None Do you use any recreational Drugs:: No ROS Review of Systems Constitutional: Malaise and Weakness Eyes: No Symptoms Reported ENTM: No Symptoms Reported Respiratoy: Non-Productive Cough Cardiovascular: No Symptoms Reported Gastrointestinal/Abdominal: No Symptoms Reported Genitourinary: No Symptoms Reported Neurological: Weakness and Dizziness Musculoskeletal: Back Pain and Neck Pain Integumentary: No Symptoms Reported Hematologic/Lymphatic: No Symptoms Reported Psychiatric: No Symptoms Reported All Other Systems: Reviewed and Negative PE Vital Signs Vitals: Temperature 98.9 F Pulse Rate 76 Respiratory Rate 28 Blood Pressure [Left Arm] 80/45 Blood Pressure [Right Arm] 78/50 Blood Pressure 105/67 O2 Sat by Pulse Oximetry 99 General General Appearance: Alert, In No Apparent Distress and Other (+ appears weak) Head Head Exam: Normal Inspection Eyes Eye exam: PERRL and EOMI ENT ENT Exam: Normal Oropharynx and Mucous Membranes Moist Neck Neck Exam: Normal Inspection Chest Chest Inspection: Normal Inspection Respiratory Respiratory Exam: Normal Lung Sounds Bilat; negative Accessory Muscle Use or Respiratory Distress Respiratory Exam: Bilateral: Clear to Auscultation Cardiovascular Cardiovascular Exam: Regular Rate, Normal Rhythm and Normal Heart Sounds Abdominal Exam Abdominal Exam: Normal Bowel Sounds and Soft; negative Tenderness Extremities Extremities Exam: negative Edema Neurologic Neurological Exam: Alert, Oriented X3 and CN II-XII Intact; negative Motor Sensory Deficit Psychiatric Psychiatric Exam: Normal Affect Skin Skin Exam: Warm and Dry COURSE Treatment Treatment: 66 y/o male, h/o chronic MAC infection, recently treated for pneumonia, having increasing weakness andlow BP. W/u initiated. 1139 - BP coming up after 500 ml bolus. CXR with bilateral increased markings of upper lobes, c/w h/o MAC infection. Labs overall acceptable, but has elevated lactic acid of 3.7. Pt given additional IV fluids, will cover with IV doxycycline. Recommend admission for further treatment of his hypotension, chronic lung infection. ROR Labs Reviewed Laboratory Results Reviewed?: Yes Result Diagrams: 01/26/22 09:10 01/26/22 09:10 Laboratory: WBC 9.3 X10^3/uL (3.6-10.0) 01/26/22 09:10 RBC 4.93 X10^6/uL (4.7-6.0) 01/26/22 09:10 Hgb 10.2 g/dL (13.5-18.0) L 01/26/22 09:10 Hct 31.9 % (42.0-54.0) L 01/26/22 09:10 MCV 64.8 fL (80.0-100.0) L 01/26/22 09:10 MCH 20.7 pg (27.0-34.0) L 01/26/22 09:10 MCHC 32.0 g/dL (33.0-35.0) L 01/26/22 09:10 RDW 20.2 % (11.6-16.5) H 01/26/22 09:10 Plt Count 417 X10^3/uL (150.0-450.0) 01/26/22 09:10 Plt Count Comment Adequate (ADEQUATE) 01/26/22 09:10 MPV 8.3 fL (7.4-11.0) 01/26/22 09:10 Neut % (Auto) 72.5 % (42.0-75.0) 01/26/22 09:10 Lymph % (Auto) 6.3 % (21.0-51.0) L 01/26/22 09:10 [place] % (Auto) 18.6 % (0.0-13.0) H 01/26/22 09:10 Eos % (Auto) 2.1 % (0.9-2.9) 01/26/22 09:10 Baso % (Auto) 0.5 % (0.2-1.0) 01/26/22 09:10 Neut # (Auto) 6.8 x10^3/uL (2.2-4.8) H 01/26/22 09:10 Lymph # (Auto) 0.6 X10^3/uL (1.3-2.9) L 01/26/22 09:10 [place] # (Auto) 1.7 x10^3/uL (0.3-0.8) H 01/26/22 09:10 Eos # (Auto) 0.2 x10^3/uL (0.0-0.2) 01/26/22 09:10 Baso # (Auto) 0.0 X10^3/uL (0.0-0.1) 01/26/22 09:10 Absolute Nucleated RBC 0.0 /100WBC 01/26/22 09:10 Total Counted 100 01/26/22 09:10 Neutrophils % (Manual) 80 % (39-76) H 01/26/22 09:10 Lymphocytes % (Manual) 8 % (13-43) L 01/26/22 09:10 Monocytes % (Manual) 11 % (4-9) H 01/26/22 09:10 Eosinophils % (Manual) 1 % (0-6) 01/26/22 09:10 Plt Morphology Comment Normal (NORMAL) 01/26/22 09:10 RBC Morphology Abnormal (NORMAL) 01/26/22 09:10 Hypochromasia 2+ A 01/26/22 09:10 Anisocytosis 1+ A 01/26/22 09:10 Microcytosis 2+ A 01/26/22 09:10 Target Cells Present 01/26/22 09:10 Sodium 135 mmol/L (136-145) L 01/26/22 09:10 Corrected Sodium TNP 01/26/22 09:10 Potassium 4.1 mmol/L (3.5-5.1) 01/26/22 09:10 Chloride 100 mmol/L (98-107) 01/26/22 09:10 Carbon Dioxide 29.1 mmol/L (21-32) 01/26/22 09:10 BUN 9 mg/dL (7-18) 01/26/22 09:10 Creatinine 1.00 mg/dL (0.70-1.30) 01/26/22 09:10 Est GFR (MDRD) Af Amer > 60 (>60) 01/26/22 09:10 Est GFR (MDRD) Non-Af > 60 (>60) 01/26/22 09:10 Glucose 99 mg/dL (65-99) 01/26/22 09:10 Lactic Acid 3.7 mmol/L (0.4-2.0) H 01/26/22 09:10 Calcium 8.5 mg/dL (8.5-10.1) 01/26/22 09:10 Corrected Calcium 10.1 mg/dL (8.5-10.1) 01/26/22 09:10 Total Bilirubin 0.40 mg/dL (0.2-1.0) 01/26/22 09:10 AST 28 Units/L (15-37) 01/26/22 09:10 ALT 19 Units/L (12-78) 01/26/22 09:10 Alkaline Phosphatase 106 Units/L (46-116) 01/26/22 09:10 Creatine Kinase < 7 Units/L (39-308) L 01/26/22 09:10 Troponin I High Sens 5.7 ng/L (4.0-60.0) 01/26/22 09:10 Total Protein 6.0 g/dL (6.4-8.2) L 01/26/22 09:10 Albumin 2.0 g/dL (3.4-5.0) L 01/26/22 09:10 Globulin 4.0 g/dL (2.5-4.5) 01/26/22 09:10 Albumin/Globulin Ratio 0.5 Ratio (1.1-2.1) L 01/26/22 09:10 Specimen Type Clean catch urine 01/26/22 09:37 Urine Color Yellow (YELLOW) 01/26/22 09:37 Urine Appearance Clear (CLEAR) 01/26/22 09:37 Urine pH 7.0 (5.0 - 8.0) 01/26/22 09:37 Ur Specific [place] 1.020 (1.000-1.030) 01/26/22 09:37 Urine Protein Negative (NEGATIVE) 01/26/22 09:37 Urine Glucose (UA) Negative (NEGATIVE) 01/26/22 09:37 Urine Ketones Negative (NEGATIVE) 01/26/22 09:37 Urine Blood Negative (NEGATIVE) 01/26/22 09:37 Urine Nitrite Negative (NEGATIVE) 01/26/22 09:37 Urine Bilirubin Negative (NEGATIVE) 01/26/22 09:37 Urine Urobilinogen Normal (NORMAL) 01/26/22 09:37 Ur Leukocyte Esterase Negative (NEGATIVE) 01/26/22 09:37 SARS-CoV-2 (PCR) Negative (NEGATIVE) 01/26/22 11:43 Influenza Type A (PCR) Negative (NEGATIVE) 01/26/22 11:43 Influenza Type B (PCR) Negative (NEGATIVE) 01/26/22 11:43 RSV (PCR) Negative (NEGATIVE) 01/26/22 11:43 Labs acceptable. EKG Rate: 78 [place]: Normal Rhythm: NSR Block: None ST: Nonsp Opioid Opioid Risk Tool Age (Alber box if 16-45): No History of Preadolescent Sexual Abuse: No Total: 0 Total Score Risk Category: Low Risk Copyright: Randy MCGOVERN predicting aberrant behaviors Discharge Plan Diagnosis Discharge Problem: Acute hypotension, Mycobacteria, atypical Discharge Plan Patient Disposition: ADMITTED INPATIENT Condition: Stable
[2022-01-26] MEDS ORDERED: NS 500 ML IV 500 ML IV ONE ×2 (09:13→09:19)
[2022-01-26 09:42] LABS: BASOPHILS % (AUTO) 0.5 % (0.2-1.0); EOSINOPHILS # (AUTO) 0.2 x10^3/uL (0.0-0.2); EOSINOPHILS % (AUTO) 2.1 % (0.9-2.9); HEMATOCRIT 31.9 % (42.0-54.0); HEMOGLOBIN 10.2 g/dL (13.5-18.0); LYMPHOCYTES # (AUTO) 0.6 X10^3/uL (1.3-2.9); LYMPHOCYTES % (AUTO) 6.3 % (21.0-51.0); MEAN CORPUSCULAR HEMOGLOBIN 20.7 pg (27.0-34.0); MEAN CORPUSCULAR VOLUME 64.8 fL (80.0-100.0); MEAN PLATELET VOLUME 8.3 fL (7.4-11.0); MONOCYTES # (AUTO) 1.7 x10^3/uL (0.3-0.8); MONOCYTES % (AUTO) 18.6 % (0.0-13.0); NEUTROPHILS # (AUTO) 6.8 x10^3/uL (2.2-4.8); NEUTROPHILS % (AUTO) 72.5 % (42.0-75.0); RED BLOOD COUNT 4.93 X10^6/uL (4.7-6.0); RED CELL DISTRIBUTION WIDTH 20.2 % (11.6-16.5); WHITE BLOOD COUNT 9.3 X10^3/uL (3.6-10.0)
--- NOTE | 2022-01-26 09:48 | RAD ---
HISTORYLOW BP ; H/O OF RECENT PNEUMONIASTUDYCHEST, 1 [id number]/2020.TECHNIQUEAP view of the chestFINDINGSThere is rightward deviation of the thoracic trachea. The cardiac silhouette is within normal limits. There is superior elevation of the babar. Similar appearing bilateral upper lobe opacities with cavitary lesions. There is tenting left hemidiaphragm which is new from prior. No definite pleural effusion. No discernible pneumothorax.IMPRESSIONBilateral upper lobe airspace opacities with cavitary lesions. There is bilateral hilar upward retraction. Tenting of the left hemidiaphragm. This constellation of findings is suspicious for progressive massive fibrosis.Rightward deviation of the trachea may be caused by aortic pathology or lymphadenopathy. CT chest is recommended for further evaluation.Electronically signed by: Jesse Baig (Jan 26, 2022 09:47:00)
[2022-01-26 09:52] LABS: BLOOD UREA NITROGEN 9 mg/dL (7-18); eGFR NON BLACK RACES > 60 (>60)
[2022-01-26 09:53] LABS: LACTIC ACID 3.7 mmol/L (0.4-2.0)
[2022-01-26 10:17] LABS: BILIRUBIN,URINE NEGATIVE (NEGATIVE); BLOOD/HEMOGLOBIN,URINE NEGATIVE (NEGATIVE); GLUCOSE, URINE NEGATIVE (NEGATIVE); KETONES,URINE NEGATIVE (NEGATIVE); LEUKOCYTE ESTERASE ,URINE NEGATIVE (NEGATIVE); NITRITES,URINE NEGATIVE (NEGATIVE); PROTEIN,URINE NEGATIVE (NEGATIVE); UROBILINOGEN,URINE NORMAL (NORMAL)
[2022-01-26 10:19] LABS: APPEARANCE,URINE CLEAR (CLEAR); COLOR,URINE YELLOW (YELLOW)
[2022-01-26 10:25] LABS: ALANINE AMINOTRANSFERASE 19 Units/L (12-78); ALKALINE PHOSPHATASE 106 Units/L (46-116); ASPARTATE AMINO TRANSFERASE 28 Units/L (15-37); CALCIUM 8.5 mg/dL (8.5-10.1); CARBON DIOXIDE 29.1 mmol/L (21-32); CHLORIDE 100 mmol/L (98-107); COR CA(FOR HYPOALB) 10.1 mg/dL (8.5-10.1); CREATINE KINASE < 7 Units/L (39-308); SODIUM 135 mmol/L (136-145)
[2022-01-26 10:35] LABS: PLATELET MORPHOLOGY COMMENT NORMAL (NORMAL)
[2022-01-26 10:36] LABS: ANISOCYTOSIS 1+; HYPOCHROMASIA 2+; MICROCYTOSIS 2+; TARGET CELLS PRESENT
[2022-01-26] MEDS ORDERED: VIBRAMYCIN 100 MG in D5W 250 ML IV 250 ML IV ONE (11:22)
[2022-01-26] MEDS ORDERED: VIBRAMYCIN IV ONE (11:49)
[2022-01-26] MEDS ORDERED: NS 1,000 ML IV 1,000 ML ONE (11:49)
[2022-01-26] MEDS ORDERED: D5W 250 ML IV 250 ML IV ONE (11:50)
[2022-01-26] MEDS ORDERED: D5 NS 1,000 ML IV 1,000 ML IV ONE (11:54)
[2022-01-26] MEDS: D5 NS 1,000 ML IV 1,000 ML IV SCH ×3 (11:59→23:20)
[2022-01-26] MEDS ORDERED: PROVENTIL NEB TX 0.083% 2.5MG/ 3ML IN PRN (14:17)
[2022-01-26] MEDS ORDERED: ETHAMBUTOL HCL PO SCH (14:17)
--- NOTE | 2022-01-26 15:09 | CT ---
HISTORYH/O MAC INFECTION, + TRACHEAL DEVIATIONSTUDYCHEST WITH [id number]/2019TECHNIQUEMultiple axial images of the chest were obtained from the thoracic inlet to the upper abdomen after the administration of IV contrast. Dose reduction techniques including Automated Exposure Control (AEC) and adjustment of mA and kV were utilized.FINDINGSThe heart size is normal. There is atherosclerosis in the LAD and 1st diagonal branch. The main pulmonary trunk is ectatic at 3.6 cm which suggests pulmonary artery hypertension. There is no filling defect to suggest a pulmonary embolus. There is dilation of the ascending aorta at 4.1 cm in diameter. There is no aortic dissection. There is markedly abnormal adenopathy in the mediastinum and in the hilar regions and in the supraclavicular area. On the earlier study there was cavitation in the right upper lobe and some low-grade inflammation in the left upper lobe. On the current exam there is now severe induration with cavitation in the left upper lobe and there are multiple nodules in the left upper lobe and to a lesser extent in the left lower lobe. There is also some interstitial prominence in the bilateral lower lobes. There is a small left pleural effusion and no adenopathy along the left chest wall in the retro pleural space or posterior mediastinum and this encompasses the descending thoracic aorta. There is also adenopathy seen in the upper abdomen. No worrisome bone marrow lesions.IMPRESSION1. Dramatic interval worsening in the pulmonary cavitation disease with multiple nodules especially in the left upper lobe.2. Significant increase in mediastinal and upper abdominal adenopathy as well as some adenopathy in the posterior mediastinum encasing the lower thoracic aorta. This could be secondary to infection but the differential also includes a lymphoma.Electronically signed by: Mihir Salinas (Jan 26, 2022 15:07:27)
[2022-01-26] MEDS: CELEBREX PO SCH (15:40)
[2022-01-26] MEDS: PERIACTIN TAB 4 MG PO SCH (20:49)
[2022-01-26] MEDS: REGLAN TAB 10 MG PO SCH (20:49)
[2022-01-26] MEDS: REMERON PO SCH (20:50)
[2022-01-26] MEDS: PEPCID TAB 40 MG PO SCH (20:50)
[2022-01-26] MEDS: PATIENT'S HOME MEDICATION PO SCH (22:37)
[2022-01-27] MEDS: PATIENT'S HOME MEDICATION PO SCH ×3 (05:15→21:15)
[2022-01-27 06:01] LABS: ALANINE AMINOTRANSFERASE 21 Units/L (12-78); ALBUMIN 1.9 g/dL (3.4-5.0); ALKALINE PHOSPHATASE 109 Units/L (46-116); ASPARTATE AMINO TRANSFERASE 33 Units/L (15-37); BLOOD UREA NITROGEN 5 mg/dL (7-18); CALCIUM 8.4 mg/dL (8.5-10.1); CARBON DIOXIDE 27.1 mmol/L (21-32); CHLORIDE 102 mmol/L (98-107); COR CA(FOR HYPOALB) 10.1 mg/dL (8.5-10.1); CREATININE 0.93 mg/dL (0.70-1.30); SODIUM 136 mmol/L (136-145); TOTAL PROTEIN 5.9 g/dL (6.4-8.2); eGFR NON BLACK RACES > 60 (>60)
[2022-01-27 06:03] LABS: BASOPHILS # (AUTO) 0.1 X10^3/uL (0.0-0.1); BASOPHILS % (AUTO) 0.9 % (0.2-1.0); EOSINOPHILS # (AUTO) 0.1 x10^3/uL (0.0-0.2); EOSINOPHILS % (AUTO) 1.4 % (0.9-2.9); HEMOGLOBIN 8.7 g/dL (13.5-18.0); LYMPHOCYTES # (AUTO) 0.4 X10^3/uL (1.3-2.9); LYMPHOCYTES % (AUTO) 6.5 % (21.0-51.0); MEAN CORPUSCULAR HEMOGLOBIN 20.7 pg (27.0-34.0); MEAN CORPUSCULAR HGB CONC 32.3 g/dL (33.0-35.0); MEAN CORPUSCULAR VOLUME 64.1 fL (80.0-100.0); MEAN PLATELET VOLUME 8.2 fL (7.4-11.0); MONOCYTES # (AUTO) 1.4 x10^3/uL (0.3-0.8); MONOCYTES % (AUTO) 20.8 % (0.0-13.0); NEUTROPHILS # (AUTO) 4.6 x10^3/uL (2.2-4.8); NEUTROPHILS % (AUTO) 70.4 % (42.0-75.0); RED BLOOD COUNT 4.22 X10^6/uL (4.7-6.0); RED CELL DISTRIBUTION WIDTH 19.5 % (11.6-16.5); WHITE BLOOD COUNT 6.6 X10^3/uL (3.6-10.0)
[2022-01-27 06:55] LABS: PLATELET MORPHOLOGY COMMENT NORMAL (NORMAL)
[2022-01-27 06:56] LABS: ANISOCYTOSIS SLIGHT; HYPOCHROMASIA 2+; MICROCYTOSIS 2+; TARGET CELLS PRESENT
[2022-01-27] MEDS: D5 NS 1,000 ML IV 1,000 ML IV SCH ×2 (07:30→07:36)
[2022-01-27] MEDS ORDERED: PHARMACY CONSULT - TPN XX SCH (09:00)
[2022-01-27] MEDS: CELEBREX PO SCH (09:01)
[2022-01-27] MEDS: PLAVIX PO SCH (09:02)
[2022-01-27] MEDS: LIPITOR TAB 20 MG PO SCH (09:02)
[2022-01-27] MEDS: REGLAN TAB 10 MG PO SCH ×2 (09:03→20:45)
[2022-01-27] MEDS: PEPCID TAB 40 MG PO SCH ×2 (09:03→20:45)
--- NOTE | 2022-01-27 09:16 | DR.H&P ---
H&P - History & Physical for Day of: H&P Date: 01/26/22 - Chief Complaint Chief Complaint: SOB, COUGH, INCREASED WEAKNESS - History of Present Illness History of Present Illness: IS A 66 YEAR OLD PATIENT OF [employer]. HE PRESENTED TO THE ER WITH COMPLAINTS OF SHORTNESS OF BREATH, COUGH, AND INCREASED WEAKNESS FOR THE PAST 3-4 DAYS. HE REPORTS THAT HIS SYMPTOMS HAVE WORSENED DESPITE USE OF NEBULIZER TREATMENTS THAT WERE PRESCRIBED BY HIS PRIMARY CARE PHYSICIAN. HE REPORTS THAT HE WAS RECENTLY TREATED FOR BILATERAL PNEUMONIA. HIS PMH INCLUDES CHRONIC MYCOBACTERIUM AVIUM COMPLEX, COPD, DEPRESSION, GERD, AND APPENDECTOMY. HE CURRENTLY TAKES AZITHROMYCIN 500MG DAILY, CLARITHROMYCIN 500MG BID, AND ETHAMBUTOL 400MG PO TID FOR CHRONIC MAC INFECTION. ON ARRIVAL TO THE ER, VITALS WERE: 98.9-81-22-99%-94/67. LABS WERE OBTAINED. WBC 9.3, RBC 4.93, HGB 10.2, HCT 31.9, SODIUM 135, POTASSIUM 4.1, CHLORIDE 100, CARBON DIOXIDE 29.1, BUN 9, CREATININE 1.00, GLUCOSE 99, LACTIC ACID 3.7, CALCIUM 8.5, AST 28, ALT 19, ALK PHOS 106, TOTAL PROTEIN 6.0, ALBUMIN 2.0. URINALYSIS WAS OBTAINED AND WAS UNREMARKABLE. COVID, INFLUENZA, AND RSV NEGATIVE. BLOOD CULTURES WERE SET UP. A CHEST XRAY WAS OBTAINED AND REVEALED: Bilateral upper lobe airspace opacities with cavitary lesions. There is bilateral hilar upward retraction. Tenting of the left hemidiaphragm. This constellation of findings is suspicious for progressive massive fibrosis. Rightward deviation of the trachea may be caused by aortic pathology or lymphadenopathy. CHEST CT WITH CONTRAST OBTAINED AND REVEALED: 1. Dramatic interval worsening in the pulmonary cavitation disease with multiple nodules especially in the left upper lobe. 2. Significant increase in mediastinal and upper abdominal adenopathy as well as some adenopathy in the posterior mediastinum encasing the lower thoracic aorta. This could be secondary to infection but the differential also includes a lymphoma. EKG REVEALED: NORMAL SINUS RHYTHM WITH HR 78. IN THE ER, HE WAS GIVEN A NORMAL SALINE BOLUS AND VIBRAMYCIN 100MG IV X 1. HE WAS ADMITTED TO THE HOSPITAL FOR FURTHER EVALUATION AND TREATMENT OF PNEUMONIA, CHRONIC MAC INFECTION, AND HYPOTENSION. HE WAS STARTED ON D5NS AT 50 ML/HR, TPN AT 50 ML/HR, ALBUMIN 25% IV DAILY, AZITHROMYCIN 500MG IV DAILY, RIFAMPIN 300MG PO BID, DUONEBS QID. HER HOME MEDICATIONS OF LIPITOR, CELEBREX, PLAVIX, FLEXERIL, PERIACTIN, PEPCID, ETHAMBUTOL, NORCO, REGLAN, REMERON, WERE RESUMED. OTHERWISE, WE PLAN TO FOLLOW-UP WITH AM LABS AND CHEST XRAY AND CONTINUE TO MONITOR. TIME SPENT ON CLINICAL ASSESSMENT, REVIWING LABS AND IMAGING, DECISION MAKING, AND DOCUMENTATION GREATER THAN 75 MINUTES. - Past Medical History Past Medical History: Anemia, COPD, Coronary Artery Disease, Depression, GERD - Past Surgical History Surgical History: Appendectomy, Other - Family History Family Medical History: [place] - Social History Does patient currently use any type of tobacco product: No Have you used tobacco products in the last 12 months: Yes Type of Tobacco Use: Cigarettes How many years tobacco product used: 20 Does any household member use tobacco: No Alcohol Use: None - Medications Home Medications: banana Allergy (Verified 10/20/19 10:05) Barbiturates Allergy (Verified 10/20/19 10:05) Penicillins Allergy (Verified 10/20/19 10:05) streptomycin Allergy (Verified 10/20/19 10:05) CONTINUE taking the following medications azithromycin 500 mg tablet 500 mg PO QDAY 01/26/22 [History] celecoxib 200 mg capsule 200 mg PO QDAY 01/26/22 [History] clarithromycin 500 mg tablet 500 mg PO BID 01/26/22 [History] cyclobenzaprine 5 mg tablet 5 mg PO DAILY 01/26/22 [History] cyproheptadine 4 mg tablet 4 mg PO QPM 01/26/22 [History] diphenhydramine 25 mg-acetaminophen 500 mg tablet (Tylenol PM Extra Strength) 1 tab PO HS 01/26/22 [History] ethambutol 400 mg tablet 400 mg PO TID 01/26/22 [History] famotidine 40 mg tablet 40 mg PO BID 01/26/22 [History] mirtazapine 30 mg tablet 30 mg PO QPM 01/26/22 [History] tiotropium bromide 18 mcg capsule with inhalation device (Spiriva with HandiHaler) 18 mcg inhalation QDAY 01/26/22 [History] - Review of Systems Constitutional: Weakness Eyes: No Symptoms Reported ENT: No Symptoms Reported Respiratory: See HPI, Cough, Shortness of Breath Cardiovascular: No Symptoms Reported Gastrointestinal: No Symptoms Reported Genitourinary: No Symptoms Reported Musculoskeletal: No Symptoms Reported Skin: No Symptoms Reported Neurological: Weakness - Physical Exam Vital Signs: Temperature 98.1 F Pulse Rate [Bilateral Radial] 73 Pulse Rate 76 Respiratory Rate 30 Blood Pressure [Left Arm] 91/53 Blood Pressure [Right Arm] 78/50 Blood Pressure 105/67 O2 Sat by Pulse Oximetry 96 Oriented: Normal Eyes: Normal Ear: Normal Nose: Normal Throat: Normal Respiratory: Diminished Throughout Cardiovascular: Normal : Normal Auscultation: Bowel Sounds: Normal Palpation: Normal Tenderness: Normal Skin: Decreased [place]urgur Musculoskeletal: Normal Psychiatric: Normal Mood Description: Calm Affect: Normal Speech Pattern: Clear - Assessment/Plan (1) Pneumonia Qualifiers: Pneumonia type: due to unspecified organism Laterality: bilateral Lung location: upper lobe of lung Qualified Code(s): J18.9 - Pneumonia, unspecified organism Status: Acute Plan: ADMIT, SUPPLEMENTAL OXYGEN, D5NS AT 50 ML/HR, TPN AT 50 ML/HR, ALBUMIN 25% IV DAILY, AZITHROMYCIN 500MG IV DAILY, RIFAMPIN 300MG PO BID, DUONEBS QID. HER HOME MEDICATIONS OF LIPITOR, CELEBREX, PLAVIX, FLEXERIL, PERIACTIN, PEPCID, ETHAMBUTOL, NORCO, REGLAN, REMERON, WERE RESUMED. (2) Acute hypotension Status: Acute (3) Mycobacterium avium complex Status: Chronic (4) Hypoalbuminemia Status: Acute (5) Protein calorie malnutrition Qualifiers: Protein-calorie malnutrition severity: mild Qualified Code(s): E44.1 - Mild protein-calorie malnutrition Status: Acute (6) Hyperlipidemia Qualifiers: Hyperlipidemia type: mixed hyperlipidemia Qualified Code(s): E78.2 - Mixed hyperlipidemia Status: Chronic (7) GERD (gastroesophageal reflux disease) Qualifiers: Esophagitis presence: esophagitis presence not specified Qualified Code(s): K21.9 - Gastro-esophageal reflux disease without esophagitis Status: Chronic (8) COPD (chronic obstructive pulmonary disease) Qualifiers: COPD type: unspecified COPD Qualified Code(s): J44.9 - Chronic obstructive pulmonary disease, unspecified Status: Chronic - Allergies Allergies/Adverse Reactions: Allergies Allergy/AdvReac Type Severity Reaction Status Date / Time banana Allergy Verified 10/20/19 10:05 Barbiturates Allergy Verified 10/20/19 10:05 Penicillins Allergy Verified 10/20/19 10:05 streptomycin Allergy Verified 10/20/19 10:05
[2022-01-27] MEDS: ALBUMIN HUMAN 25%- 100 ML 100 ML IV SCH (09:36)
[2022-01-27] MEDS: RIFADIN PO SCH ×2 (09:36→20:45)
[2022-01-27] MEDS: FLEXERIL TAB 10 MG PO SCH (09:36)
[2022-01-27] MEDS: ZITHROMAX INJ 500 MG VIAL 500 MG in NS 250 ML IV 250 ML IV SCH (09:54)
[2022-01-27] MEDS ORDERED: NovoLIN R (or HumuLIN R) SUBCUT PRN (10:45)
[2022-01-27] MEDS: CLINIMIX 4.25%-5% 1,000 ML with MVI INJ (ADULT) 10 ML IV SCH ×2 (12:24)
[2022-01-27] MEDS: DUONEB 0.5 MG/3 MG (3 mL) NEB SCH ×4 (13:20→20:59)
[2022-01-27 17:57] VITALS: BMI 23.7
[2022-01-27] MEDS: NORCO 7.5/325 MG TAB PO PRN (19:16)
[2022-01-27] MEDS ORDERED: DUONEB 0.5 MG/3 MG (3 mL) NEB ONE (20:08)
[2022-01-27] MEDS: PERIACTIN TAB 4 MG PO SCH (20:45)
[2022-01-27] MEDS: REMERON PO SCH (20:45)
[2022-01-28 05:27] LABS: BASOPHILS # (AUTO) 0.1 X10^3/uL (0.0-0.1); BASOPHILS % (AUTO) 1.3 % (0.2-1.0); EOSINOPHILS # (AUTO) 0.1 x10^3/uL (0.0-0.2); EOSINOPHILS % (AUTO) 0.8 % (0.9-2.9); HEMATOCRIT 25.6 % (42.0-54.0); HEMOGLOBIN 8.2 g/dL (13.5-18.0); LYMPHOCYTES # (AUTO) 0.4 X10^3/uL (1.3-2.9); LYMPHOCYTES % (AUTO) 5.7 % (21.0-51.0); MEAN CORPUSCULAR HEMOGLOBIN 20.4 pg (27.0-34.0); MEAN CORPUSCULAR HGB CONC 32.2 g/dL (33.0-35.0); MEAN CORPUSCULAR VOLUME 63.3 fL (80.0-100.0); MEAN PLATELET VOLUME 7.8 fL (7.4-11.0); MONOCYTES # (AUTO) 1.2 x10^3/uL (0.3-0.8); NEUTROPHILS # (AUTO) 4.6 x10^3/uL (2.2-4.8); NEUTROPHILS % (AUTO) 73.2 % (42.0-75.0); RED BLOOD COUNT 4.04 X10^6/uL (4.7-6.0); RED CELL DISTRIBUTION WIDTH 20.4 % (11.6-16.5); WHITE BLOOD COUNT 6.3 X10^3/uL (3.6-10.0)
[2022-01-28 05:43] LABS: ALANINE AMINOTRANSFERASE 16 Units/L (12-78); ALBUMIN 2.2 g/dL (3.4-5.0); ALKALINE PHOSPHATASE 93 Units/L (46-116); ASPARTATE AMINO TRANSFERASE 21 Units/L (15-37); BLOOD UREA NITROGEN 10 mg/dL (7-18); CALCIUM 8.4 mg/dL (8.5-10.1); CARBON DIOXIDE 26.1 mmol/L (21-32); CHLORIDE 101 mmol/L (98-107); COR CA(FOR HYPOALB) 9.8 mg/dL (8.5-10.1); CREATININE 0.88 mg/dL (0.70-1.30); SODIUM 134 mmol/L (136-145); TOTAL PROTEIN 5.8 g/dL (6.4-8.2); eGFR NON BLACK RACES > 60 (>60)
[2022-01-28 06:01] LABS: HYPOCHROMASIA 1+; PLATELET MORPHOLOGY COMMENT NORMAL (NORMAL)
[2022-01-28 06:02] LABS: ANISOCYTOSIS 1+; MICROCYTOSIS 2+
[2022-01-28] MEDS: PATIENT'S HOME MEDICATION PO SCH ×3 (06:02→21:03)
[2022-01-28 06:03] LABS: TARGET CELLS SLIGHT
--- NOTE | 2022-01-28 06:42 | RAD ---
HISTORYSOBSTUDYCHEST, 1 [id number]/2022FINDINGSThe cardiomediastinal silhouette is stable. Similar bilateral airspace opacities. No pneumothorax. The bony thorax appears intact.IMPRESSIONSimilar bilateral opacities. Recommend follow-up to resolution.Electronically signed by: DEDRICK LIN (Jan 28, 2022 06:41:08)
[2022-01-28] MEDS: DUONEB 0.5 MG/3 MG (3 mL) NEB SCH ×4 (08:30→21:00)
[2022-01-28] MEDS: ALBUMIN HUMAN 25%- 100 ML 100 ML IV SCH (09:22)
[2022-01-28] MEDS: FLEXERIL TAB 10 MG PO SCH (09:23)
[2022-01-28] MEDS: CELEBREX PO SCH (09:23)
[2022-01-28] MEDS: CLINIMIX 4.25%-5% 1,000 ML with MVI INJ (ADULT) 10 ML IV SCH ×2 (09:23)
[2022-01-28] MEDS: ZITHROMAX INJ 500 MG VIAL 500 MG in NS 250 ML IV 250 ML IV SCH (09:24)
[2022-01-28] MEDS: PEPCID TAB 40 MG PO SCH ×2 (09:24→20:29)
[2022-01-28] MEDS: REGLAN TAB 10 MG PO SCH ×2 (09:24→20:28)
[2022-01-28] MEDS: LIPITOR TAB 20 MG PO SCH (09:24)
[2022-01-28] MEDS: RIFADIN PO SCH ×2 (09:25→20:27)
[2022-01-28] MEDS: PLAVIX PO SCH (09:26)
--- NOTE | 2022-01-28 18:23 | PCM.PROG ---
Progress Note - Progress Note for Day of Date of Exam: 01/28/22 - Subjective Subjective: WAS ADMITTED FOR TREATMENT OF PNEUMONIA, ACUTE HYPOTENSION, HYPOALBUMINEMIA, AND PROTEIN CALORIE MALNUTRITION. HE HAS A HISTORY OF CHRONIC MYCOBACTERIUM AVIUM COMPLEX, GERD, HYPERLIPIDEMIA, AND COPD. TODAY, HE IS ALERT AND ORIENTED, LYING IN BED ON MORNING ROUNDS. HE COMPLAINS OF COUGH, SHORTNESS OF BREATH, AND GENERALIZED WEAKNESS THIS MORNING. HE ALSO COMPLAINS OF DIFFICULTY SWALLOWING. NURSING STAFF REPORTS THAT HE HAS BEEN DISORIENTED AND RESTLESS THROUGOUT THE NIGHT. ON EXAMINATION, HEART IS REGULAR IN RATE AND RHYTHM. BILATERAL LUNGS ARE NOTED WITH DIMINISHED LUNG SOUNDS THROUGHOUT. ABDOMEN IS ROUND, SOFT, AND NON-TENDER WITH NORMAL BOWEL SOUNDS NOTED IN ALL QUADRANTS. NO UPPER OR LOWER EXTREMITY EDEMA NOTED. HIS VITALS THIS MORNING ARE: 98.8-71-18-97%-83/47. LABS WERE OBTAINED. WBC 6.3, RBC 4.04, HGB 8.2, HCT 25.6, PLT COUNT 326, SODIUM 134, POTASSIUM 3.8, CHLORIDE 101, BUN 10, CREATININE 0.88, GLUCOSE 100, LACTIC ACID 2.8, CALCIUM 8.4, IRON 17, FERRITIN 164, FERRITIN 61, TOTAL BILI 1.10, AST 21, ALT 16, ALK PHOS 93, TOTAL PROTEIN 5.8, ALBUMIN 2.2, B12 1565, FOLATE 5.7. BLOOD CULTURES ARE PENDING. A CHEST XRAY WAS REPEATED AND REVEALED: The cardiomediastinal silhouette is stable. Similar bilateral airspace opacities. No pneumothorax. The bony thorax appears intact. HE IS CURRENTLY RECEIVING D5NS AT 50 ML/HR, TPN AT 50 ML/HR, ALBUMIN 25% IV DAILY, AZITHROMYCIN 500MG IV DAILY, RIFAMPIN 300MG PO BID, DUONEBS QID. HIS HOME MEDICATIONS OF LIPITOR, CELEBREX, PLAVIX, FLEXERIL, PERIACTIN, PEPCID, ETHAMBUTOL, NORCO, REGLAN, REMERON, WERE RESUMED. TODAY, WE WILL CONSULT FOR POSSIBLE EGD DUE TO DYSPHAGIA. OTHERWISE, WE WILL CONTINUE WITH CURRENT PLAN OF CARE TODAY. WE PLAN TO FOLLOW-UP WITH AM LABS AND CONTINUE TO MONITOR. TIME SPENT ON CLINICAL ASSESSMENT, REVIEWING LABS AND IMAGING, DECISION MAKING, AND DOCUMENTATION GREATER THAN 45 MINUTES. - Past Medical Family Social History Past Med/Fam/Surg Hx: No changes since H&P Allergies: Allergies banana Allergy (Verified 10/20/19 10:05) Barbiturates Allergy (Verified 10/20/19 10:05) Penicillins Allergy (Verified 10/20/19 10:05) streptomycin Allergy (Verified 10/20/19 10:05) - Review of Systems ROS: No change since H&P - Vital Signs and I&O's Vital Signs: Temperature 97.7 F Pulse Rate [Bilateral Radial] 79 Pulse Rate 71 Respiratory Rate 18 Blood Pressure [Left Arm] 97/59 Blood Pressure [Right Arm] 78/50 Blood Pressure 105/67 O2 Sat by Pulse Oximetry 95 Intake and Output: Intake & Output 01/26/22 01/27/22 01/28/22 01/29/22 11:59 11:59 11:59 11:59 Intake Total 2110 / 2110 3301 / 3301 1062 / 1062 Output Total 925 / 925 2425 / 2425 1150 / 1150 Balance 1185 / 1185 876 / 876 -88 / -88 - Physical Exam Oriented: Normal Eyes: Normal Ear: Normal Nose: Normal Throat: Normal Respiratory: Generalized, Diminished Cardiovascular: Normal : Normal Auscultation: Bowel Sounds: Normal Palpation: Normal Tenderness: Normal Skin: Decreased Turgur Musculoskeletal: Normal Psychiatric: Normal Mood Description: Calm Affect: Normal Speech Pattern: Clear, Appropriate - Laboratory and Diagnostics Result Diagrams: 01/28/22 05:17 01/28/22 05:17 Labs: 01/26/22 09:23 Blood Blood Culture - Preliminary 01/26/22 09:10 Blood Blood Culture - Preliminary Laboratory WBC 6.3 X10^3/uL (3.6-10.0) 01/28/22 05:17 RBC 4.04 X10^6/uL (4.7-6.0) L 01/28/22 05:17 Hgb 8.2 g/dL (13.5-18.0) L 01/28/22 05:17 Hct 25.6 % (42.0-54.0) L 01/28/22 05:17 MCV 63.3 fL (80.0-100.0) L 01/28/22 05:17 MCH 20.4 pg (27.0-34.0) L 01/28/22 05:17 MCHC 32.2 g/dL (33.0-35.0) L 01/28/22 05:17 RDW 20.4 % (11.6-16.5) H 01/28/22 05:17 Plt Count 326 X10^3/uL (150.0-450.0) 01/28/22 05:17 Plt Count Comment Adequate (ADEQUATE) 01/28/22 05:17 MPV 7.8 fL (7.4-11.0) 01/28/22 05:17 Neut % (Auto) 73.2 % (42.0-75.0) 01/28/22 05:17 Lymph % (Auto) 5.7 % (21.0-51.0) L 01/28/22 05:17 [place] % (Auto) 19.0 % (0.0-13.0) H 01/28/22 05:17 Eos % (Auto) 0.8 % (0.9-2.9) L 01/28/22 05:17 Baso % (Auto) 1.3 % (0.2-1.0) H 01/28/22 05:17 Neut # (Auto) 4.6 x10^3/uL (2.2-4.8) 01/28/22 05:17 Lymph # (Auto) 0.4 X10^3/uL (1.3-2.9) L 01/28/22 05:17 [place] # (Auto) 1.2 x10^3/uL (0.3-0.8) H 01/28/22 05:17 Eos # (Auto) 0.1 x10^3/uL (0.0-0.2) 01/28/22 05:17 Baso # (Auto) 0.1 X10^3/uL (0.0-0.1) 01/28/22 05:17 Absolute Nucleated RBC 0.0 /100WBC 01/28/22 05:17 Total Counted 100 01/27/22 05:06 Neutrophils % (Manual) 80 % (39-76) H 01/27/22 05:06 Lymphocytes % (Manual) 6 % (13-43) L 01/27/22 05:06 Monocytes % (Manual) 14 % (4-9) H 01/27/22 05:06 Eosinophils % (Manual) 1 % (0-6) 01/26/22 09:10 Plt Morphology Comment Normal (NORMAL) 01/28/22 05:17 RBC Morphology Abnormal (NORMAL) 01/28/22 05:17 Hypochromasia 1+ A 01/28/22 05:17 Anisocytosis 1+ A 01/28/22 05:17 Microcytosis 2+ A 01/28/22 05:17 Target Cells Slight A 01/28/22 05:17 Sodium 134 mmol/L (136-145) L 01/28/22 05:17 Corrected Sodium TNP 01/28/22 05:17 Potassium 3.8 mmol/L (3.5-5.1) 01/28/22 05:17 Chloride 101 mmol/L (98-107) 01/28/22 05:17 Carbon Dioxide 26.1 mmol/L (21-32) 01/28/22 05:17 BUN 10 mg/dL (7-18) 01/28/22 05:17 Creatinine 0.88 mg/dL (0.70-1.30) 01/28/22 05:17 Est GFR (MDRD) Af Amer > 60 (>60) 01/28/22 05:17 Est GFR (MDRD) Non-Af > 60 (>60) 01/28/22 05:17 Glucose 100 mg/dL (65-99) H 01/28/22 05:17 POC Glucose (mg/dL) 154 mg/dL (65-99) H 01/28/22 18:14 Lactic Acid 2.8 mmol/L (0.4-2.0) H 01/28/22 05:17 Calcium 8.4 mg/dL (8.5-10.1) L 01/28/22 05:17 Corrected Calcium 9.8 mg/dL (8.5-10.1) 01/28/22 05:17 Iron 17 ug/dL (50-175) L 01/28/22 05:17 Transferrin 164 mg/dL (202-364) L 01/28/22 05:17 Ferritin 61 ng/mL (26-388) 01/28/22 05:17 Total Bilirubin 1.10 mg/dL (0.2-1.0) H 01/28/22 05:17 AST 21 Units/L (15-37) 01/28/22 05:17 ALT 16 Units/L (12-78) 01/28/22 05:17 Alkaline Phosphatase 93 Units/L (46-116) 01/28/22 05:17 Creatine Kinase < 7 Units/L (39-308) L 01/26/22 09:10 Troponin I High Sens 5.7 ng/L (4.0-60.0) 01/26/22 09:10 C-Reactive Protein 99.10 mg/L (0-3.0) H 01/27/22 05:06 Total Protein 5.8 g/dL (6.4-8.2) L 01/28/22 05:17 Albumin 2.2 g/dL (3.4-5.0) L 01/28/22 05:17 Globulin 3.6 g/dL (2.5-4.5) 01/28/22 05:17 Albumin/Globulin Ratio 0.6 Ratio (1.1-2.1) L 01/28/22 05:17 Vitamin B12 1565 pg/mL (193-986) H 01/28/22 05:17 Folate 5.7 ng/mL (>8.6) L 01/28/22 05:17 Specimen Type Clean catch urine 01/26/22 09:37 Urine Color Yellow (YELLOW) 01/26/22 09:37 Urine Appearance Clear (CLEAR) 01/26/22 09:37 Urine pH 7.0 (5.0 - 8.0) 01/26/22 09:37 Ur Specific [place] 1.020 (1.000-1.030) 01/26/22 09:37 Urine Protein Negative (NEGATIVE) 01/26/22 09:37 Urine Glucose (UA) Negative (NEGATIVE) 01/26/22 09:37 Urine Ketones Negative (NEGATIVE) 01/26/22 09:37 Urine Blood Negative (NEGATIVE) 01/26/22 09:37 Urine Nitrite Negative (NEGATIVE) 01/26/22 09:37 Urine Bilirubin Negative (NEGATIVE) 01/26/22 09:37 Urine Urobilinogen Normal (NORMAL) 01/26/22 09:37 Ur Leukocyte Esterase Negative (NEGATIVE) 01/26/22 09:37 SARS-CoV-2 (PCR) Negative (NEGATIVE) 01/26/22 11:43 Influenza Type A (PCR) Negative (NEGATIVE) 01/26/22 11:43 Influenza Type B (PCR) Negative (NEGATIVE) 01/26/22 11:43 RSV (PCR) Negative (NEGATIVE) 01/26/22 11:43 - Plan (1) Pneumonia Status: Acute Qualifiers: Pneumonia type: due to unspecified organism Laterality: bilateral Lung location: upper lobe of lung Qualified Code(s): J18.9 - Pneumonia, unspecified organism Plan: SUPPLEMENTAL OXYGEN, D5NS AT 50 ML/HR, TPN AT 50 ML/HR, ALBUMIN 25% IV DAILY, AZITHROMYCIN 500MG IV DAILY, RIFAMPIN 300MG PO BID, DUONEBS QID. HER HOME MEDICATIONS OF LIPITOR, CELEBREX, PLAVIX, FLEXERIL, PERIACTIN, PEPCID, ETHAMBUTOL, NORCO, REGLAN, REMERON, WERE RESUMED. (2) Acute hypotension Status: Acute (3) Mycobacterium avium complex Status: Chronic (4) Hypoalbuminemia Status: Acute (5) Protein calorie malnutrition Status: Acute Qualifiers: Protein-calorie malnutrition severity: mild Qualified Code(s): E44.1 - Mild protein-calorie malnutrition (6) Hyperlipidemia Status: Chronic Qualifiers: Hyperlipidemia type: mixed hyperlipidemia Qualified Code(s): E78.2 - Mixed hyperlipidemia (7) GERD (gastroesophageal reflux disease) Status: Chronic Qualifiers: Esophagitis presence: esophagitis presence not specified Qualified Code(s): K21.9 - Gastro-esophageal reflux disease without esophagitis (8) COPD (chronic obstructive pulmonary disease) Status: Chronic Qualifiers: COPD type: unspecified COPD Qualified Code(s): J44.9 - Chronic obstructive pulmonary disease, unspecified
[2022-01-28] MEDS: REMERON PO SCH (20:28)
[2022-01-28] MEDS: PERIACTIN TAB 4 MG PO SCH (20:29)
[2022-01-28] MEDS: NORCO 7.5/325 MG TAB PO PRN (23:51)
[2022-01-29 05:38] LABS: BASOPHILS # (AUTO) 0.1 X10^3/uL (0.0-0.1); BASOPHILS % (AUTO) 1.2 % (0.2-1.0); EOSINOPHILS # (AUTO) 0.2 x10^3/uL (0.0-0.2); EOSINOPHILS % (AUTO) 2.8 % (0.9-2.9); HEMATOCRIT 25.8 % (42.0-54.0); HEMOGLOBIN 8.2 g/dL (13.5-18.0); LYMPHOCYTES # (AUTO) 0.3 X10^3/uL (1.3-2.9); MEAN CORPUSCULAR HEMOGLOBIN 20.5 pg (27.0-34.0); MEAN CORPUSCULAR HGB CONC 31.9 g/dL (33.0-35.0); MEAN CORPUSCULAR VOLUME 64.2 fL (80.0-100.0); MEAN PLATELET VOLUME 7.8 fL (7.4-11.0); MONOCYTES # (AUTO) 1.6 x10^3/uL (0.3-0.8); MONOCYTES % (AUTO) 25.7 % (0.0-13.0); NEUTROPHILS # (AUTO) 4.2 x10^3/uL (2.2-4.8); NEUTROPHILS % (AUTO) 65.3 % (42.0-75.0); RED BLOOD COUNT 4.02 X10^6/uL (4.7-6.0); RED CELL DISTRIBUTION WIDTH 20.2 % (11.6-16.5); WHITE BLOOD COUNT 6.4 X10^3/uL (3.6-10.0)
[2022-01-29] MEDS: PATIENT'S HOME MEDICATION PO SCH ×2 (05:44→14:42)
[2022-01-29 05:48] LABS: ALANINE AMINOTRANSFERASE 12 Units/L (12-78); ALBUMIN 2.4 g/dL (3.4-5.0); ALKALINE PHOSPHATASE 88 Units/L (46-116); ASPARTATE AMINO TRANSFERASE 17 Units/L (15-37); BLOOD UREA NITROGEN 11 mg/dL (7-18); CALCIUM 8.6 mg/dL (8.5-10.1); CARBON DIOXIDE 24.2 mmol/L (21-32); CHLORIDE 103 mmol/L (98-107); COR CA(FOR HYPOALB) 9.9 mg/dL (8.5-10.1); CREATININE 0.79 mg/dL (0.70-1.30); LACTIC ACID 2.4 mmol/L (0.4-2.0); SODIUM 136 mmol/L (136-145); eGFR NON BLACK RACES > 60 (>60)
[2022-01-29] MEDS ORDERED: KLOR-CON PO PRN (05:56)
[2022-01-29] MEDS ORDERED: POTASSIUM CHLORIDE LIQ 20 MEQ UDC PO PRN (05:56)
[2022-01-29] MEDS ORDERED: MICRO K EXTEN CAP 10 MEQ PO PRN (05:56)
[2022-01-29] MEDS ORDERED: K-RIDER 10 MEQ/NS 100 ML 10 MEQ/100 ML BAG IV PRN (05:56)
[2022-01-29] MEDS ORDERED: POTASSIUM CHL 60 MEQ/NS 0.45% 500 ML IV PRN (05:56)
[2022-01-29] MEDS ORDERED: POTASSIUM CHL 40 MEQ/NS 0.45% 500 ML IV PRN (05:56)
[2022-01-29 06:06] LABS: ANISOCYTOSIS 1+; BAND NEUTROPHILS % 2 % (0-10); HYPOCHROMASIA 2+; MICROCYTOSIS 2+; PLATELET MORPHOLOGY COMMENT NORMAL (NORMAL)
[2022-01-29 06:08] LABS: TARGET CELLS SLIGHT
--- NOTE | 2022-01-29 06:23 | RAD ---
HISTORYPNEUMONIA; SOB Relevant Clinical InformationSTUDYCHEST, 1 [id number] trachea is midline. The cardiac silhouette is unremarkable. Bilateral airspace opacities unchanged from 01/28/2022. No pneumothorax. The bony thorax is unremarkable.IMPRESSIONStable portable chest.Electronically signed by: Ford Wolff (Jan 29, 2022 06:22:05)
[2022-01-29] MEDS: CELEBREX PO SCH (08:18)
[2022-01-29] MEDS: PLAVIX PO SCH (08:19)
[2022-01-29] MEDS: REGLAN TAB 10 MG PO SCH ×2 (08:19→20:18)
[2022-01-29] MEDS: K-DUR TAB 20 MEQ PO PRN ×2 (08:19→15:19)
[2022-01-29] MEDS: LIPITOR TAB 20 MG PO SCH (08:20)
[2022-01-29] MEDS: RIFADIN PO SCH ×2 (08:20→20:28)
[2022-01-29] MEDS: PEPCID TAB 40 MG PO SCH ×2 (08:20→20:16)
[2022-01-29] MEDS: ALBUMIN HUMAN 25%- 100 ML 100 ML IV SCH (08:20)
[2022-01-29] MEDS: DUONEB 0.5 MG/3 MG (3 mL) NEB SCH ×4 (08:41→20:35)
[2022-01-29] MEDS ORDERED: NS 250 ML IV 250 ML IV ONE (08:41)
[2022-01-29] MEDS: CLINIMIX 4.25%-5% 1,000 ML with MVI INJ (ADULT) 10 ML IV SCH ×2 (08:47)
[2022-01-29] MEDS: ZITHROMAX INJ 500 MG VIAL 500 MG in NS 250 ML IV 250 ML IV SCH (08:47)
[2022-01-29] MEDS ORDERED: NS 100 ML IV 100 ML with VENOFER 400 MG IV NR ×2 (10:00)
[2022-01-29] MEDS: FLEXERIL TAB 10 MG PO SCH (10:16)
[2022-01-29] MEDS ORDERED: DIPRIVAN VIAL 20 ML ONE (10:51)
[2022-01-29] MEDS ORDERED: NS 1,000 ML IV 1,000 ML IV ONE (11:44)
--- NOTE | 2022-01-29 13:01 | PCM.PROG ---
Progress Note - Progress Note for Day of Date of Exam: 01/29/22 - Subjective Subjective: WAS ADMITTED FOR TREATMENT OF PNEUMONIA, ACUTE HYPOTENSION, DYSPHAGIA, HYPOALBUMINEMIA, AND PROTEIN CALORIE MALNUTRITION. HE HAS A HISTORY OF CHRONIC MYCOBACTERIUM AVIUM COMPLEX, GERD, HYPERLIPIDEMIA, AND COPD. TODAY, HE IS ALERT AND ORIENTED, LYING IN BED ON MORNING ROUNDS. HE COMPLAINS OF COUGH, SHORTNESS OF BREATH, DIFFICULTY SWALLOWING, AND GENERALIZED WEAKNESS THIS MORNING. ON EXAMINATION, HEART IS REGULAR IN RATE AND RHYTHM. BILATERAL LUNGS ARE NOTED WITH DIMINISHED LUNG SOUNDS THROUGHOUT. ABDOMEN IS ROUND, SOFT, AND NON-TENDER WITH NORMAL BOWEL SOUNDS NOTED IN ALL QUADRANTS. NO UPPER OR LOWER EXTREMITY EDEMA NOTED. HIS VITALS THIS MORNING ARE: 97.3-81-18-94%-116/68. LABS WERE OBTAINED. WBC 6.4, HGB 8.2, HCT 25.8, SODIUM 136, POTASSIUM 3.5, CHLORIDE 103, BUN 11, CREATININE 0.79, GLUCOSE 99, LACTIC ACID 2.4, MAGNESIUM 1.5, TOTAL PROTEIN 6.0, ALBUMIN 2.4. BLOOD CULTURES ARE PENDING. A CHEST XRAY WAS REPEATED AND REVEALED: The trachea is midline. The cardiac silhouette is unremarkable. Bilateral airspace opacities unchanged from 01/28/2022. No pneumothorax. The bon y thorax is unremarkable. HE IS CURRENTLY RECEIVING D5NS AT 50 ML/HR, TPN AT 50 ML/HR, ALBUMIN 25% IV DAILY, AZITHROMYCIN 500MG IV DAILY, RIFAMPIN 300MG PO BID, DUONEBS QID. HIS HOME MEDICATIONS OF LIPITOR, CELEBREX, PLAVIX, FLEXERIL, PERIACTIN, PEPCID, ETHAMBUTOL, NORCO, REGLAN, REMERON, WERE RESUMED. PLANS FOR AN EGD THIS MORNING DUE TO DYSPAGIA. WE ARE IN AGREEMENT WITH PLANS. OTHERWISE, WE WILL CONTINUE WITH CURRENT PLAN OF CARE TODAY. WE PLAN TO FOLLOW- UP WITH AM LABS AND CONTINUE TO MONITOR. TIME SPENT ON CLINICAL ASSESSMENT, REVIEWING LABS AND IMAGING, DECISION MAKING, AND DOCUMENTATION GREATER THAN 45 MINUTES. - Past Medical Family Social History Past Med/Fam/Surg Hx: No changes since H&P Allergies: Allergies banana Allergy (Verified 10/20/19 10:05) Barbiturates Allergy (Verified 10/20/19 10:05) Penicillins Allergy (Verified 10/20/19 10:05) streptomycin Allergy (Verified 10/20/19 10:05) - Review of Systems ROS: No change since H&P - Vital Signs and I&O's Vital Signs: Temperature 98.4 F Pulse Rate [Bilateral Radial] 78 Pulse Rate 80 Respiratory Rate 18 Blood Pressure [Left Arm] 106/62 Blood Pressure [Right Arm] 78/50 Blood Pressure 105/67 O2 Sat by Pulse Oximetry 95 Intake and Output: Intake & Output 01/27/22 01/28/22 01/29/22 01/30/22 11:59 11:59 11:59 11:59 Intake Total 2110 / 2110 3301 / 3301 2258 / 2258 Output Total 925 / 925 2425 / 2425 1555 / 1555 Balance 1185 / 1185 876 / 876 703 / 703 - Physical Exam Oriented: Normal Eyes: Normal Ear: Normal Nose: Normal Throat: Normal Respiratory: Generalized, Diminished Cardiovascular: Normal : Normal Auscultation: Bowel Sounds: Normal Palpation: Normal Tenderness: Normal Skin: Decreased Turgur Musculoskeletal: Normal Psychiatric: Normal Mood Description: Calm Affect: Normal Speech Pattern: Clear, Appropriate - Laboratory and Diagnostics Result Diagrams: 01/29/22 05:14 01/29/22 05:14 Labs: 01/26/22 09:23 Blood Blood Culture - Preliminary 01/26/22 09:10 Blood Blood Culture - Preliminary Laboratory WBC 6.4 X10^3/uL (3.6-10.0) 01/29/22 05:14 RBC 4.02 X10^6/uL (4.7-6.0) L 01/29/22 05:14 Hgb 8.2 g/dL (13.5-18.0) L 01/29/22 05:14 Hct 25.8 % (42.0-54.0) L 01/29/22 05:14 MCV 64.2 fL (80.0-100.0) L 01/29/22 05:14 MCH 20.5 pg (27.0-34.0) L 01/29/22 05:14 MCHC 31.9 g/dL (33.0-35.0) L 01/29/22 05:14 RDW 20.2 % (11.6-16.5) H 01/29/22 05:14 Plt Count 349 X10^3/uL (150.0-450.0) 01/29/22 05:14 Plt Count Comment Adequate (ADEQUATE) 01/29/22 05:14 MPV 7.8 fL (7.4-11.0) 01/29/22 05:14 Neut % (Auto) 65.3 % (42.0-75.0) 01/29/22 05:14 Lymph % (Auto) 5.0 % (21.0-51.0) L 01/29/22 05:14 [place] % (Auto) 25.7 % (0.0-13.0) H 01/29/22 05:14 Eos % (Auto) 2.8 % (0.9-2.9) 01/29/22 05:14 Baso % (Auto) 1.2 % (0.2-1.0) H 01/29/22 05:14 Neut # (Auto) 4.2 x10^3/uL (2.2-4.8) 01/29/22 05:14 Lymph # (Auto) 0.3 X10^3/uL (1.3-2.9) L 01/29/22 05:14 [place] # (Auto) 1.6 x10^3/uL (0.3-0.8) H 01/29/22 05:14 Eos # (Auto) 0.2 x10^3/uL (0.0-0.2) 01/29/22 05:14 Baso # (Auto) 0.1 X10^3/uL (0.0-0.1) 01/29/22 05:14 Absolute Nucleated RBC 0.2 /100WBC 01/29/22 05:14 Total Counted 100 01/29/22 05:14 Neutrophils % (Manual) 68 % (39-76) 01/29/22 05:14 Band Neutrophils % 2 % (0-10) 01/29/22 05:14 Lymphocytes % (Manual) 7 % (13-43) L 01/29/22 05:14 Monocytes % (Manual) 21 % (4-9) H 01/29/22 05:14 Eosinophils % (Manual) 2 % (0-6) 01/29/22 05:14 Atypical Lymphocytes Few 01/29/22 05:14 Plt Morphology Comment Normal (NORMAL) 01/29/22 05:14 RBC Morphology Abnormal (NORMAL) 01/29/22 05:14 Hypochromasia 2+ A 01/29/22 05:14 Anisocytosis 1+ A 01/29/22 05:14 Microcytosis 2+ A 01/29/22 05:14 Target Cells Slight A 01/29/22 05:14 Sodium 136 mmol/L (136-145) 01/29/22 05:14 Corrected Sodium TNP 01/29/22 05:14 Potassium 3.5 mmol/L (3.5-5.1) 01/29/22 05:14 Chloride 103 mmol/L (98-107) 01/29/22 05:14 Carbon Dioxide 24.2 mmol/L (21-32) 01/29/22 05:14 BUN 11 mg/dL (7-18) 01/29/22 05:14 Creatinine 0.79 mg/dL (0.70-1.30) 01/29/22 05:14 Est GFR (MDRD) Af Amer > 60 (>60) 01/29/22 05:14 Est GFR (MDRD) Non-Af > 60 (>60) 01/29/22 05:14 Glucose 99 mg/dL (65-99) 01/29/22 05:14 POC Glucose (mg/dL) 100 mg/dL (65-99) H 01/29/22 10:32 Lactic Acid 2.4 mmol/L (0.4-2.0) H 01/29/22 05:14 Calcium 8.6 mg/dL (8.5-10.1) 01/29/22 05:14 Corrected Calcium 9.9 mg/dL (8.5-10.1) 01/29/22 05:14 Magnesium 1.5 mg/dL (1.7-2.9) L 01/29/22 05:14 Iron 17 ug/dL (50-175) L 01/28/22 05:17 Transferrin 164 mg/dL (202-364) L 01/28/22 05:17 Ferritin 61 ng/mL (26-388) 01/28/22 05:17 Total Bilirubin 0.90 mg/dL (0.2-1.0) 01/29/22 05:14 AST 17 Units/L (15-37) 01/29/22 05:14 ALT 12 Units/L (12-78) 01/29/22 05:14 Alkaline Phosphatase 88 Units/L (46-116) 01/29/22 05:14 Creatine Kinase < 7 Units/L (39-308) L 01/26/22 09:10 Troponin I High Sens 5.7 ng/L (4.0-60.0) 01/26/22 09:10 C-Reactive Protein 99.10 mg/L (0-3.0) H 01/27/22 05:06 Total Protein 6.0 g/dL (6.4-8.2) L 01/29/22 05:14 Albumin 2.4 g/dL (3.4-5.0) L 01/29/22 05:14 Globulin 3.6 g/dL (2.5-4.5) 01/29/22 05:14 Albumin/Globulin Ratio 0.7 Ratio (1.1-2.1) L 01/29/22 05:14 Vitamin B12 1565 pg/mL (193-986) H 01/28/22 05:17 Folate 5.7 ng/mL (>8.6) L 01/28/22 05:17 Specimen Type Clean catch urine 01/26/22 09:37 Urine Color Yellow (YELLOW) 01/26/22 09:37 Urine Appearance Clear (CLEAR) 01/26/22 09:37 Urine pH 7.0 (5.0 - 8.0) 01/26/22 09:37 Ur Specific [place] 1.020 (1.000-1.030) 01/26/22 09:37 Urine Protein Negative (NEGATIVE) 01/26/22 09:37 Urine Glucose (UA) Negative (NEGATIVE) 01/26/22 09:37 Urine Ketones Negative (NEGATIVE) 01/26/22 09:37 Urine Blood Negative (NEGATIVE) 01/26/22 09:37 Urine Nitrite Negative (NEGATIVE) 01/26/22 09:37 Urine Bilirubin Negative (NEGATIVE) 01/26/22 09:37 Urine Urobilinogen Normal (NORMAL) 01/26/22 09:37 Ur Leukocyte Esterase Negative (NEGATIVE) 01/26/22 09:37 SARS-CoV-2 (PCR) Negative (NEGATIVE) 01/26/22 11:43 Influenza Type A (PCR) Negative (NEGATIVE) 01/26/22 11:43 Influenza Type B (PCR) Negative (NEGATIVE) 01/26/22 11:43 RSV (PCR) Negative (NEGATIVE) 01/26/22 11:43 - Plan (1) Pneumonia Status: Acute Qualifiers: Pneumonia type: due to unspecified organism Laterality: bilateral Lung location: upper lobe of lung Qualified Code(s): J18.9 - Pneumonia, unspecified organism Plan: SUPPLEMENTAL OXYGEN, D5NS AT 50 ML/HR, TPN AT 50 ML/HR, ALBUMIN 25% IV DAILY, AZITHROMYCIN 500MG IV DAILY, RIFAMPIN 300MG PO BID, DUONEBS QID. HER HOME MEDICATIONS OF LIPITOR, CELEBREX, PLAVIX, FLEXERIL, PERIACTIN, PEPCID, ETHAMBUTOL, NORCO, REGLAN, REMERON, WERE RESUMED. (2) Acute hypotension Status: Acute (3) Mycobacterium avium complex Status: Chronic (4) Hypoalbuminemia Status: Acute (5) Protein calorie malnutrition Status: Acute Qualifiers: Protein-calorie malnutrition severity: mild Qualified Code(s): E44.1 - Mild protein-calorie malnutrition (6) Hyperlipidemia Status: Chronic Qualifiers: Hyperlipidemia type: mixed hyperlipidemia Qualified Code(s): E78.2 - Mixed hyperlipidemia (7) GERD (gastroesophageal reflux disease) Status: Chronic Qualifiers: Esophagitis presence: esophagitis presence not specified Qualified Code(s): K21.9 - Gastro-esophageal reflux disease without esophagitis (8) COPD (chronic obstructive pulmonary disease) Status: Chronic Qualifiers: COPD type: unspecified COPD Qualified Code(s): J44.9 - Chronic obstructive pulmonary disease, unspecified
[2022-01-29] MEDS ORDERED: NS 100 ML IV 100 ML ONE (19:35)
[2022-01-29] MEDS ORDERED: DRUG FILTER EXTENSION SET ONE (19:39)
[2022-01-29] MEDS: MAGNESIUM SULFATE 1 GRAM/100 mL PREMIX 1 G/100 ML BAG IV PRN ×2 (19:43→20:50)
[2022-01-29] MEDS ORDERED: ROBITUSSIN DM PO PRN (19:52)
[2022-01-29] MEDS ORDERED: TUSSIONEX PENNKINETIC SUSP PO PRN (19:52)
[2022-01-29] MEDS: PERIACTIN TAB 4 MG PO SCH (20:16)
[2022-01-29] MEDS: REMERON PO SCH (20:24)
[2022-01-29] MEDS: NORCO 7.5/325 MG TAB PO PRN (20:28)
[2022-01-30] MEDS ORDERED: DRUG FILTER EXTENSION SET ONE (02:48)
[2022-01-30] MEDS: CLINIMIX 4.25%-5% 1,000 ML with MVI INJ (ADULT) 10 ML IV SCH ×2 (02:53)
[2022-01-30 03:40] VITALS: BP 85/49
[2022-01-30 05:47] LABS: BASOPHILS # (AUTO) 0.1 X10^3/uL (0.0-0.1); BASOPHILS % (AUTO) 1.4 % (0.2-1.0); EOSINOPHILS # (AUTO) 0.1 x10^3/uL (0.0-0.2); HEMATOCRIT 25.5 % (42.0-54.0); HEMOGLOBIN 8.3 g/dL (13.5-18.0); LYMPHOCYTES # (AUTO) 0.3 X10^3/uL (1.3-2.9); LYMPHOCYTES % (AUTO) 3.6 % (21.0-51.0); MEAN CORPUSCULAR HEMOGLOBIN 20.6 pg (27.0-34.0); MEAN CORPUSCULAR HGB CONC 32.4 g/dL (33.0-35.0); MEAN CORPUSCULAR VOLUME 63.7 fL (80.0-100.0); MEAN PLATELET VOLUME 8.1 fL (7.4-11.0); MONOCYTES # (AUTO) 1.9 x10^3/uL (0.3-0.8); RED CELL DISTRIBUTION WIDTH 19.7 % (11.6-16.5); WHITE BLOOD COUNT 7.5 X10^3/uL (3.6-10.0)
[2022-01-30 06:12] LABS: ALANINE AMINOTRANSFERASE 12 Units/L (12-78); ALBUMIN 2.6 g/dL (3.4-5.0); ALKALINE PHOSPHATASE 87 Units/L (46-116); ASPARTATE AMINO TRANSFERASE 19 Units/L (15-37); BLOOD UREA NITROGEN 8 mg/dL (7-18); CALCIUM 8.2 mg/dL (8.5-10.1); CARBON DIOXIDE 22.3 mmol/L (21-32); CHLORIDE 103 mmol/L (98-107); COR CA(FOR HYPOALB) 9.3 mg/dL (8.5-10.1); CREATININE 0.75 mg/dL (0.70-1.30); MAGNESIUM 1.8 mg/dL (1.7-2.9); SODIUM 137 mmol/L (136-145); TOTAL PROTEIN 6.1 g/dL (6.4-8.2); eGFR NON BLACK RACES > 60 (>60)
[2022-01-30 06:34] LABS: BAND NEUTROPHILS % 2 % (0-10); HYPOCHROMASIA 2+; METAMYELOCYTES % 1; PLATELET MORPHOLOGY COMMENT NORMAL (NORMAL)
[2022-01-30 06:35] LABS: ANISOCYTOSIS 1+; MICROCYTOSIS 2+; TARGET CELLS SLIGHT
[2022-01-30] MEDS: ALBUMIN HUMAN 25%- 100 ML 100 ML IV SCH (08:17)
[2022-01-30] MEDS: RIFADIN PO SCH (08:19)
[2022-01-30] MEDS: FLEXERIL TAB 10 MG PO SCH (08:19)
[2022-01-30] MEDS: LIPITOR TAB 20 MG PO SCH (08:19)
[2022-01-30] MEDS: CELEBREX PO SCH (08:19)
[2022-01-30] MEDS: PLAVIX PO SCH (08:19)
[2022-01-30] MEDS: REGLAN TAB 10 MG PO SCH (08:19)
[2022-01-30] MEDS: PEPCID TAB 40 MG PO SCH (08:20)
[2022-01-30] MEDS: K-DUR TAB 20 MEQ PO PRN (08:20)
[2022-01-30] MEDS: PATIENT'S HOME MEDICATION PO SCH (08:21)
[2022-01-30] MEDS: DUONEB 0.5 MG/3 MG (3 mL) NEB SCH (08:33)
[2022-01-30] MEDS: MAGNESIUM SULFATE 1 GRAM/100 mL PREMIX 1 G/100 ML BAG IV PRN (09:45)
== END 2022-01-30 11:55 | disposition home health service (06) | DRG 195 ==
LOC: ER 08:54 → MED/SURG 08:54
PROVIDERS: ADMIT Internal Medicine; ATTEND Internal Medicine
DX: E88.09 Other disorders of plasma-protein metabolism, not elsewhere classified; E78.2 Mixed hyperlipidemia; F32.89 Other specified depressive episodes; R13.11 Dysphagia, oral phase; K21.9 Gastro-esophageal reflux disease without esophagitis; R06.02 Shortness of breath; I95.89 Other hypotension; R53.1 Weakness; D64.89 Other specified anemias; K44.9 Diaphragmatic hernia without obstruction or gangrene; J18.9 Pneumonia, unspecified organism; K29.00 Acute gastritis without bleeding; A31.0 Pulmonary mycobacterial infection; R63.4 Abnormal weight loss